=== PATIENT | female | born 1955 | race Caucasian/White ===

== ENCOUNTER 2020-01-22 08:19 | Outpatient (REF) | payer OTHER, SELFPAY ==
[2020-01-22 11:25] LABS: Estimated Average Glucose 163 mg/dL; Hemoglobin A1c % 7.3 %
[2020-01-22 11:42] LABS: Alanine Aminotransferase 16 U/L (0-31); Albumin Level 4.2 g/dL (3.5-5.0); Alkaline Phosphatase 63 U/L (39-117); Anion Gap 12 (12-20); Aspartate Amino Transferase 16 U/L (5-31); Bilirubin Total 0.6 mg/dL (0.0-1.0); Blood Urea Nitrogen 13 mg/dL (9-16); Calcium 8.8 mg/dL (8.4-10.2); Carbon Dioxide 28 mmol/L (22-29); Chloride 105 mmol/L (96-108); Cholesterol 203 mg/dL; Estimated Glomerular Filt Rate > 60; Glucose Fasting 157 mg/dL (60-99); HDL Cholesterol 47 mg/dL; LDL Cholesterol Calculated 133 mg/dl; Potassium 4.4 mmol/l (3.3-5.1); Sodium 141 mmol/L (135-145); Total Protein 6.5 g/dL (6.5-8.0); Triglycerides 117 mg/dL
[2020-01-22 12:05] LABS: TSH reflex Free T4 1.75 mIU/mL (0.32-4.0)
[2020-01-22 12:27] LABS: Creatinine Urine 169.43 mg/dL; Microalbum/Creatinine Ratio Ur 8.2 ug/mg cr
== END 2020-01-22 08:20 | disposition home or self-care (01) ==
LOC: HO.HMGCLDS 08:19
PROVIDERS: PCP Nurse Practitioner Family; Visit Provider Nurse Practitioner Family
DX: E11.9 Type 2 diabetes mellitus without complications (principal)
CPT/HCPCS: 80053; 80061; 82043; 83036; 84443

== ENCOUNTER 2020-07-31 07:24 | Outpatient (REF) | payer OTHER, SELFPAY ==
[2020-07-31 12:13] LABS: Alanine Aminotransferase 18 U/L (0-31); Albumin Level 4.1 g/dL (3.5-5.0); Alkaline Phosphatase 65 U/L (39-117); Anion Gap 12 (12-20); Aspartate Amino Transferase 17 U/L (5-31); Bilirubin Total 0.7 mg/dL (0.0-1.0); Blood Urea Nitrogen 14 mg/dL (9-16); Calcium 9.1 mg/dL (8.4-10.2); Carbon Dioxide 29 mmol/L (22-29); Chloride 105 mmol/L (96-108); Cholesterol 199 mg/dL; Estimated Glomerular Filt Rate > 60; Glucose Fasting 140 mg/dL (60-99); HDL Cholesterol 47 mg/dL; LDL Cholesterol Calculated 127 mg/dl; Potassium 4.2 mmol/L (3.3-5.1); Sodium 142 mmol/L (135-145); Total Protein 6.3 g/dL (6.5-8.0); Triglycerides 126 mg/dL
[2020-07-31 12:20] LABS: Estimated Average Glucose 123 mg/dL; Hemoglobin A1c % 5.9 %
== END 2020-07-31 07:25 | disposition home or self-care (01) ==
LOC: HO.HMGCLDS 07:24
PROVIDERS: PCP Nurse Practitioner Family; Visit Provider Nurse Practitioner Family
DX: E11.9 Type 2 diabetes mellitus without complications (principal)
CPT/HCPCS: 36415; 80053; 80061; 83036

== ENCOUNTER → 2020-09-04 14:28 | Outpatient (BNVA) | payer OTHER, SELFPAY | PROVIDERS: PCP Nurse Practitioner Family; Visit Provider Internal Medicine ==

== ENCOUNTER → 2020-09-19 08:43 | Outpatient (REF) | payer OTHER, SELFPAY ==
--- NOTE | ~2020-09-19 | NM_ITS ---
Myocardial perfusion study Indication: Precordial chest pain to evaluate for myocardial ischemia Technique: The patient was brought in for a Lexiscan perfusion study on 09/19/2020. Patient performed low-level exercise and was injected 0.4 mg of Lexiscan intravenously. Within a minute of injection, 30 mCi of sestamibi was given intravenously. Images were obtained using the SPECT gamma camera interlaced with the gating device. Images were obtained in supine position. Resting perfusion study was performed on 09/22/2020. Patient was administered 30 mCi of sestamibi intravenously at rest. Images were then obtained in supine position. Images obtained with and without CT attenuation. Total DLP 122 mGy-cm. Images were processed with the software and compared side to side in short axis, horizontal long axis and vertical long axis views. Findings: The stress perfusion study showed nonattenuated images show mildly reduced uptake in the apex and distal lateral wall of the LV myocardium as well as minimal thinning of the inferolateral wall of the LV myocardium. Remainder of the LV myocardium is normally perfused. Attenuation corrected images show mildly reduced uptake in the apex of the LV myocardium.. The gated study shows normal LV systolic function with calculated LVEF of 71%. LV cavity is normal in size. The gated study shows normal systolic wall thickening and contraction of segments. Resting study shows nonattenuated images show normalized uptake in the apex of the LV myocardium. On attenuation corrected images. Gating at rest reveals normal systolic wall motion with visually estimated ejection fraction at greater than 60 %. The findings are consistent with small area of mild intensity apical ischemia.. NM/NM cardiolite stress test Impression: 1. Myocardial perfusion imaging study shows apical ischemia 2. Gated LVEF is 71% 3. Transient ischemic dilatation not present EKG is nondiagnostic for ischemia
--- NOTE | 2020-09-19 09:30 | CA_ITS ---
Acquisition Time: 2020-09-19 09:12:40 Total Exercise Time: 00:05:08 Test Indications: Chest Pain Medications: DULAGLUTIDE ALBUTEROL Protocol: MAURISIO Max HR: 126 BPM 80% of Pred: 156 BPM Max BP: 215/100 mmHG Max Work Load: 7.0 METS Exercise stress test with exercise 5 min 8 sec of Maurisio protocol, with moderate shortness of breath and request to stop exercise, with isolated PVCs and 2 ventricular cuplets, with hypertensive response to exercise with max BP 215/100, with nondiagnostic EKG for ischemia. She was assisted to sitting position and once breathing and BP improved, testing changed to pharmacological stress test. She took 2 puffs of her proair inhaler. No wheezing on exam. After 8 min of rest, Lexiscan injection done while sitting and kicking her legs, with sob and lightheadedness, without arrythmia, with nomotensive response to injection, with nondiagnostic EKG for ischmia. In recovery she did have ongoing symptoms and was reated with Aminophylline 75mg IVP to reverse Lexiscan. Immediately post Aminophylline injection she had brief increase in sob and lightheadedness, then improvement in symptoms. After 12 min recovery she reported very mild residual lightheadedhess. Blood sugar 140. Condition stable. Nuclear images pending. Test rviewed with Dr Lees Referred By: Ten Johnston Overread By: LUIS E PRABHAKAR
[2020-09-19 10:20] LABS: Glucose, Whole Blood 140 mg/dL (60-115)
== END ==
LOC: HO.CARD 08:43
PROVIDERS: Visit Provider Internal Medicine
DX: R07.2 Precordial pain (principal)
CPT/HCPCS: 78452; 82947; 93017; A9500; J0280; J2785

== ENCOUNTER 2020-10-20 15:36 | Outpatient (REF) | payer OTHER, SELFPAY ==
--- NOTE | ~2020-10-20 | MM_ITS ---
EXAMINATION: MM SCREENING DIGITAL BREAST TOMOSYNTHESIS, BILATERAL CLINICAL INFORMATION: Screening. Asymptomatic. History benign outside ultrasound guided right breast biopsy 11:00 position 3 cm from nipple 10/17/2015 (fat necrosis with cystic change and associated hemosiderin laden macrophages and fibrosis). No clip placed. The lifetime risk of breast cancer based on the Tyrer-Cuzick Model is 8%. COMPARISON: Mammography: 01/12/2018, outside imaging from [facility], mammography 10/03/2015, 02/19/2015; ultrasound-guided right breast biopsy 10/17/2015. TECHNIQUE: Digital breast tomosynthesis is performed in both the craniocaudal and mediolateral oblique views along with computer-aided detection (CAD). Synthesized 2D images are generated from the tomosynthesis. FINDINGS: There are scattered areas of fibroglandular density (ACR BI-RADS breast composition Category b). Parenchymal pattern is similar to prior studies. There is no developing density or interval mass or architectural abnormality. The axilla and skin contours are unremarkable. No abnormal calcific. No significant changes. MM/MM tomosynthesis screening BI IMPRESSION: No mammographic evidence of malignancy. ASSESSMENT: BI-RADS 1: Negative RECOMMENDATION: Routine annual mammography screening. This patient's information was entered into a reminder system with a target due date for their next mammogram.
== END 2020-10-20 15:37 | disposition home or self-care (01) ==
LOC: HO.MAMMO 15:36
PROVIDERS: Visit Provider Nurse Practitioner Family
DX: Z12.31 Encounter for screening mammogram for malignant neoplasm of breast (principal)
CPT/HCPCS: 77063; 77067

== ENCOUNTER 2021-01-26 06:52 | Outpatient (REF) | payer OTHER, SELFPAY ==
[2021-01-26 12:11] LABS: Appearance Urine HAZY; Color Urine YELLOW; Glucose Urine UA NEG (NEG); Leukocyte Esterase Urine NEG (NEG); Nitrite Urine NEG (NEG); Specific Gravity - Urine 1.025 (1.005-1.025); Urine Blood NEG (NEG); Urine Ketones NEG (NEG); Urine Protein NEG (NEG-TRACE)
[2021-01-26 12:13] LABS: Alanine Aminotransferase 17 U/L (0-31); Alkaline Phosphatase 65 U/L (39-117); Anion Gap 16 (12-20); Aspartate Amino Transferase 18 U/L (5-31); Bilirubin Total 0.5 mg/dL (0.0-1.0); Blood Urea Nitrogen 13 mg/dL (9-16); Carbon Dioxide 24 mmol/L (22-29); Chloride 106 mmol/L (96-108); Cholesterol 211 mg/dL; Estimated Glomerular Filt Rate > 60; Glucose Fasting 140 mg/dL (60-99); HDL Cholesterol 43 mg/dL; LDL Cholesterol Calculated 142 mg/dl; Potassium 3.8 mmol/L (3.3-5.1); Sodium 142 mmol/L (135-145); Total Protein 6.4 g/dL (6.5-8.0); Triglycerides 134 mg/dL
[2021-01-26 12:20] LABS: TSH reflex Free T4 2.37 uIU/mL (0.32-4.0)
[2021-01-26 12:51] LABS: Estimated Average Glucose 131 mg/dL; Hemoglobin A1c % 6.2 %
== END 2021-01-26 06:53 | disposition home or self-care (01) ==
LOC: HO.HMGCLDS 06:52
PROVIDERS: PCP Nurse Practitioner Family; Visit Provider Nurse Practitioner Family
DX: Z00.00 Encounter for general adult medical examination without abnormal findings (principal); E11.8 Type 2 diabetes mellitus with unspecified complications
CPT/HCPCS: 36415; 80053; 80061; 81003; 83036; 84443

== ENCOUNTER 2021-04-28 12:16 | Outpatient (REF) | payer MEDICARE, SELFPAY ==
--- NOTE | ~2021-04-28 | XR_ITS ---
EXAMINATION: XR FINGER, RIGHT CLINICAL INFORMATION: Effusion COMPARISON: None TECHNIQUE: 3 views of the right third digit. FINDINGS: Third digit: Mild PIP joint arthritis, with small subchondral lucencies. No visible acute fracture or dislocation. Remainder the visualized bones appear intact. XR/XR finger RT min 2V IMPRESSION: Mild third PIP joint arthritis. No evidence of acute fracture.
== END 2021-04-28 12:17 | disposition home or self-care (01) ==
LOC: HO.HMGCX 12:16
PROVIDERS: PCP Nurse Practitioner Family; Visit Provider Nurse Practitioner Family
DX: M25.441 Effusion, right hand (principal)
CPT/HCPCS: 73140

== ENCOUNTER 2021-06-19 12:51 | Outpatient (REF) | payer MEDICARE, SELFPAY ==
--- NOTE | ~2021-06-19 | XR_ITS ---
EXAMINATION: XR SHOULDER, RIGHT CLINICAL INFORMATION: Right shoulder pain COMPARISON: None TECHNIQUE: Four views of the right shoulder. FINDINGS: Visualized portion of the proximal right humerus demonstrate no fracture. Humeral head demonstrates good articulation with the glenoid fossa. There are mild hypertrophic changes of the right acromioclavicular joint. Approximately 1 cm coarse calcification projects adjacent to the superolateral humeral head. Postsurgical changes of the right chest noted. Visualized right-sided ribs are unremarkable. XR/XR shoulder RT min 2V IMPRESSION: Suspected calcific tendinosis of the right shoulder.
== END 2021-06-19 12:52 | disposition home or self-care (01) ==
LOC: HO.HMGCX 12:51
PROVIDERS: PCP Nurse Practitioner Family; Visit Provider Nurse Practitioner Family
DX: M25.511 Pain in right shoulder (principal)
CPT/HCPCS: 73030

== ENCOUNTER 2021-07-15 08:15 | Outpatient (REF) | payer MEDICARE, SELFPAY ==
[2021-07-15 11:39] LABS: MANUAL DIFF FLAG NO
[2021-07-15 11:46] LABS: Basophils Percent Auto 0.4 % (0-2); Eosinophils Absolute Auto 0.3 X10*3/uL (0.0-0.4); Eosinophils Percent Auto 3.3 % (0-4); Hematocrit 44.1 % (37.0-47.0); Hemoglobin 14.8 g/dl (12.0-16.0); Imm Gran Abs Auto 0.02 X10*3/uL (0.00-0.03); Imm Gran Pct Auto 0.3 % (0.0-0.4); Lymphocytes Absolute Auto 2.2 X10*3/uL (1.2-4.9); Lymphocytes Percent Auto 27.1 % (20-40); Mean Corpuscular HGB Conc 33.6 g/dl (31.0-35.0); Mean Corpuscular Hemoglobin 28.7 pg (27.0-33.0); Mean Corpuscular Volume 85.6 fL (80.0-98.0); Mean Platelet Volume 10.1 fL (9.4-12.3); Monocytes Absolute Auto 0.5 X10*3/uL (0.1-1.2); Monocytes Percent Auto 5.6 % (2-11); Neutrophils Absolute Auto 5.1 x10*3/uL (2.0-8.3); Neutrophils Percent Auto 63.3 % (45-73); Platelet Count 326 X10*3/uL (160-400); Red Blood Count 5.15 X10*6/uL (4.20-5.50); Red Cell Distribution Width 12.4 % (11.0-16.0)
[2021-07-15 11:56] LABS: Alanine Aminotransferase 13 U/L (0-31); Albumin Level 4.1 g/dL (3.5-5.0); Alkaline Phosphatase 66 U/L (39-117); Anion Gap 10 (12-20); Aspartate Amino Transferase 13 U/L (5-31); Bilirubin Total 0.6 mg/dL (0.0-1.0); Blood Urea Nitrogen 13 mg/dL (9-16); Calcium 9.4 mg/dL (8.4-10.2); Carbon Dioxide 28 mmol/L (22-29); Chloride 106 mmol/L (96-108); Cholesterol 196 mg/dL; Estimated Glomerular Filt Rate > 60; Glucose Fasting 143 mg/dL (60-99); HDL Cholesterol 43 mg/dL; LDL Cholesterol Calculated 132 mg/dl; Potassium 4.3 mmol/L (3.3-5.1); Sodium 140 mmol/L (135-145); Total Protein 6.4 g/dL (6.5-8.0); Triglycerides 107 mg/dL
[2021-07-15 12:11] LABS: Microalbum/Creatinine Ratio Ur 8.1 ug/mg cr
[2021-07-15 12:15] LABS: TSH reflex Free T4 1.57 uIU/mL (0.32-4.0)
== END 2021-07-15 08:16 | disposition home or self-care (01) ==
LOC: HO.HMGCLDS 08:15
PROVIDERS: Nurse Practitioner Family; PCP Nurse Practitioner Family; Visit Provider Nurse Practitioner Family
DX: R07.2 Precordial pain (principal); E11.9 Type 2 diabetes mellitus without complications; E78.5 Hyperlipidemia, unspecified
CPT/HCPCS: 36415; 80048; 80053; 80061; 82043; 84443; 85025

== ENCOUNTER → 2021-08-03 11:20 | Outpatient (BNVA) | payer MEDICARE, SELFPAY | PROVIDERS: PCP Nurse Practitioner Family; Referring Provider Nurse Practitioner Family; Visit Provider Internal Medicine | DX: I25.10 Atherosclerotic heart disease of native coronary artery without angina pectoris (principal); I10 Essential (primary) hypertension; E78.5 Hyperlipidemia, unspecified; E11.8 Type 2 diabetes mellitus with unspecified complications | CPT/HCPCS: 93005; 99212 ==

== ENCOUNTER → 2021-08-06 09:49 | Outpatient (BNVA) | payer MEDICARE, SELFPAY | PROVIDERS: PCP Nurse Practitioner Family; Visit Provider Physician Assistant | DX: M75.51 Bursitis of right shoulder (principal) | CPT/HCPCS: 20610; 99202; J1020 ==

== ENCOUNTER 2021-10-30 10:00 | Outpatient (RCR) | payer MEDICARE, SELFPAY ==
--- NOTE | 2021-08-28 12:42 | MHC.PT.EP ---
[facility] [place] [facility] [place] Office [place] Office [address] Deanne Toscano [address] [phone] F: [phone] F: [phone] F: [phone] F: [phone] Physical Therapy Plan of Care Date of Evaluation: Date of Surgery: Diagnosis: tendinosis of R shoulder Assessment: 66 y/o RHD female referred to PT with tendonitis of R shoulder. She has had R shoulder michelle for > 1 year with recent worsening. X-rays shoulder possible calcific tendonosis. Currently pain with reaching overhead, abduction movements, carrying groceries, and sleeping. Examination shows decreased R shoulder AROM, PROM WNL except abduction limited with empty end-feel, decreased R shoulder strength, and increased pain R shoulder especially at supraspinatus and biceps. S/s consistent with calcific tendonopathy and overlapping impingement. Recommend PT 2x/week for 6 weeks to address impairments, implement HEP, and optimize functional mobility. Frequency and Duration: The patient will be seen 2x/week for 6 weeks Short Term Goals: 3 weeks 1. I with HEP 2. Improve shoulder AROM flexion to 130 with pain <3/10 [place] Goals: 6 weeks 1.I with HEP and self-management of sx 2. Pt will be able to carry 10# groceries with pain < 3/10 3. Improve R shoulder strength grossly to 4+/5 with pain < 3/10 Treatment Plan: Modalities to reduce pain, spasms and effusion. Manual therapy to restore motion and function. Therapeutic exercise to improve strength and flexibility. Neuromuscular re-education for posture and balance. Therapeutic activities to return to functional activities of daily living. Electronically signed by: Rupal Cervantes PT Please sign and return to therapist. Thank you for your referral.
--- NOTE | 2021-11-30 12:58 | MHC.PT.DC ---
[facility] [place] Office [place] Office [place] Office [address] Deanne Toscano [address] [phone] F: [phone] F: [phone] F: [phone] F: [phone] Physical Therapy Discharge Report Diagnosis: tendinosis of R shoulder Date of Surgery: Date of Evaluation: 08/28/21 Date of Discharge: 11/30/21 Treatments to Date: 13 Cancellations to Date: 1 No Shows to Date: 0 Discharge Status: Independent with HEP Discharge Summary: D/c to I HEP. Assessment from last treatment session one month ago: She continues to have most pain with abduction and some intermittent clicking. Added behind the back stretch to tolerance today without increase in pain. Educated pt on heat/ice at home and performing ROM to tolerance in painfree zones. Also discussed and performed simulated mopping/ vacuuming and how to change work station to decrease impingement position with use of computer mouse. She has made progress (about 50% better) however has plateaued and recommend pt f/u with ortho re continued pain with certain activities and plateau of sx. Pt in agreement. Will keep chart open for 4 weeks. Electronically signed by: Rupal Cervantes PT Please sign and return to therapist. Thank you for your referral.
== END 2021-11-30 12:58 | disposition home or self-care (01) ==
LOC: HO.PTCHIC 10:00
PROVIDERS: PCP Nurse Practitioner Family; Visit Provider Nurse Practitioner Family
DX: M67.813 Other specified disorders of tendon, right shoulder (principal)
CPT/HCPCS: 97014; 97110; 97140; 97161

== ENCOUNTER → 2021-12-02 13:41 | Outpatient (BNVA) | payer MEDICARE, SELFPAY | PROVIDERS: PCP Nurse Practitioner Family; Visit Provider Internal Medicine Pulmonary Disease | DX: Q85.9 Phakomatosis, unspecified (principal); J43.9 Emphysema, unspecified | CPT/HCPCS: 99202 ==

== ENCOUNTER 2021-12-09 08:09 | Outpatient (REF) | payer MEDICARE, SELFPAY ==
--- NOTE | ~2021-12-09 | CT_ITS ---
EXAMINATION: CT CHEST WITHOUT CONTRAST CLINICAL INFORMATION: Phakomatosis. COMPARISON: CT chest 02/10/2012. TECHNIQUE: Multidetector volumetric CT imaging of the chest was done. Axial MIP volume rendering provided. Sagittal and coronal reformatted images were obtained. This CT examination was performed using dose optimization techniques as appropriate, variously including the following: *Automated exposure control *Adjustment of mA and/or kV according to patient size (this includes techniques or standardized protocols for targeted exams where dose is matched to indication/reason for exam; i.e. 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 There is scarring in this region but no recurrent mass visualized. No new nodules, mass or consolidation seen. There are punctate 1-2 mm scattered calcified granulomas. Left lower lobe atelectatic changes or scarring is seen. MEDIASTINUM: The thyroid lobes are symmetrical and normal. Central trachea and the bronchi are widely patent. Heart size and great vessels are normal caliber. There is no pericardial effusion. No abnormal size mediastinal or hilar lymph node seen. CORONARY ARTERY CALCIFICATION: None visualized on this study. PLEURA: There is no pleural effusion. No pleural mass or thickening. AXILLA: No lymphadenopathy. UPPER ABDOMEN: Visualized liver, spleen, pancreas and bilateral adrenal glands are unremarkable. There is a right renal cyst. OSSEOUS STRUCTURES: Mild ventral spondylosis in mid and lower dorsal spine. CT/CT chest wo IV con IMPRESSION: Postsurgical changes right lower lobe following removal of vascular tumor. There is scarring seen in right lower lobe with slight loss of lung volume. There are no new pulmonary nodules, mass or consolidation. There are punctate calcified granulomas. Followed Fleischner guidelines.
== END 2021-12-09 08:10 | disposition home or self-care (01) ==
LOC: HO.CT 08:09
PROVIDERS: PCP Nurse Practitioner Family; Visit Provider Internal Medicine Pulmonary Disease
DX: Q85.9 Phakomatosis, unspecified (principal)
CPT/HCPCS: 71250

== ENCOUNTER 2021-12-18 09:04 | Outpatient (REF) | payer MEDICARE, SELFPAY ==
--- NOTE | ~2021-12-18 | MM_ITS ---
EXAMINATION: MM SCREENING DIGITAL BREAST TOMOSYNTHESIS, BILATERAL CLINICAL INFORMATION: Screening. Asymptomatic. The lifetime risk of breast cancer based on the Tyrer-Cuzick Model is 7.7%. COMPARISON: Mammography: October 20, 2020 and studies dating back to February 04, 2012 TECHNIQUE: Digital breast tomosynthesis is performed in both the craniocaudal and mediolateral oblique views along with computer-aided detection (CAD). Synthesized 2D images are generated from the tomosynthesis. FINDINGS: There are scattered areas of fibroglandular density (ACR BI-RADS breast composition Category b). There are no significant masses, abnormal calcifications, or other abnormalities. MM/MM tomosynthesis screening BI IMPRESSION: No significant changes from prior exam. ASSESSMENT: BI-RADS 1: Negative RECOMMENDATION: Routine annual mammography screening. This patient's information was entered into a reminder system with a target due date for their next mammogram.
== END 2021-12-18 09:05 | disposition home or self-care (01) ==
LOC: HO.MAMMO 09:04
PROVIDERS: Visit Provider Nurse Practitioner Family
DX: Z12.31 Encounter for screening mammogram for malignant neoplasm of breast (principal)
CPT/HCPCS: 77063; 77067

== ENCOUNTER 2021-12-24 07:52 | Outpatient (REF) | payer MEDICARE, SELFPAY ==
--- NOTE | 2021-12-24 09:46 | PFT_ITS ---
Forced vital capacity 75%, FEV1 66%, FEV1/FVC ratio is 67. [id number] 55% and MVV 64%. Post bronchodilator therapy, there is moderate improvement in all flow values. Total lung capacity 94% and residual volume 88%. Diffusion capacity is 63%. CONCLUSION: Moderately severe obstructive airway disorder. Significant improvement after bronchodilator therapy resulting in normal values. These findings are consistent with diagnosis of bronchial asthma. Clinical correlation is recommended. MD MIGUEL ANGEL Lino/JALEESA / [phone]
== END 2021-12-24 07:53 | disposition home or self-care (01) ==
LOC: HO.RESP 07:52
PROVIDERS: PCP Nurse Practitioner Family; Visit Provider Internal Medicine Pulmonary Disease
DX: J43.9 Emphysema, unspecified (principal)
CPT/HCPCS: 94060; 94727; 94729

== ENCOUNTER → 2021-12-30 09:51 | Outpatient (BNVA) | payer MEDICARE, SELFPAY | PROVIDERS: PCP Nurse Practitioner Family; Visit Provider Internal Medicine Pulmonary Disease | DX: J44.9 Chronic obstructive pulmonary disease, unspecified (principal); Q85.9 Phakomatosis, unspecified | CPT/HCPCS: 99212 ==

== ENCOUNTER → 2022-02-15 14:07 | Outpatient (BNVA) | payer MEDICARE, SELFPAY | PROVIDERS: PCP Nurse Practitioner Family; Referring Provider Nurse Practitioner Family; Visit Provider Internal Medicine | DX: I25.10 Atherosclerotic heart disease of native coronary artery without angina pectoris (principal); I10 Essential (primary) hypertension; E78.5 Hyperlipidemia, unspecified; E11.8 Type 2 diabetes mellitus with unspecified complications | CPT/HCPCS: 93005; 99212 ==

== ENCOUNTER 2022-02-23 08:56 | Outpatient (REF) | payer MEDICARE, SELFPAY ==
[2022-02-23 11:13] LABS: MANUAL DIFF FLAG NO
[2022-02-23 11:28] LABS: Basophils Percent Auto 0.4 % (0-2); Eosinophils Absolute Auto 0.3 X10*3/uL (0.0-0.4); Eosinophils Percent Auto 4.1 % (0-4); Hemoglobin 14.3 g/dl (12.0-16.0); Imm Gran Abs Auto 0.02 X10*3/uL (0.00-0.03); Imm Gran Pct Auto 0.3 % (0.0-0.4); Lymphocytes Absolute Auto 1.8 X10*3/uL (1.2-4.9); Lymphocytes Percent Auto 25.9 % (20-40); Mean Corpuscular Hemoglobin 29.3 pg (27.0-33.0); Mean Corpuscular Volume 86.1 fL (80.0-98.0); Mean Platelet Volume 10.3 fL (9.4-12.3); Monocytes Absolute Auto 0.3 X10*3/uL (0.1-1.2); Monocytes Percent Auto 4.8 % (2-11); Neutrophils Absolute Auto 4.6 x10*3/uL (2.0-8.3); Neutrophils Percent Auto 64.5 % (45-73); Platelet Count 283 X10*3/uL (160-400); Red Blood Count 4.88 X10*6/uL (4.20-5.50); Red Cell Distribution Width 12.2 % (11.0-16.0); White Blood Count 7.1 X10*3/uL (4.8-10.8)
[2022-02-23 11:58] LABS: Estimated Average Glucose 128 mg/dL; Hemoglobin A1c % 6.1 %
[2022-02-23 12:39] LABS: Alanine Aminotransferase 16 U/L (0-31); Albumin Level 3.9 g/dL (3.5-5.0); Alkaline Phosphatase 60 U/L (39-117); Anion Gap 10 (12-20); Aspartate Amino Transferase 15 U/L (5-31); Bilirubin Total 0.6 mg/dL (0.0-1.0); Blood Urea Nitrogen 15 mg/dL (9-16); Calcium 8.8 mg/dL (8.4-10.2); Carbon Dioxide 27 mmol/L (22-29); Chloride 107 mmol/L (96-108); Cholesterol 191 mg/dL; Estimated Glomerular Filt Rate > 60; Glucose Fasting 152 mg/dL (60-99); HDL Cholesterol 42 mg/dL; LDL Cholesterol Calculated 121 mg/dl; Potassium 4.1 mmol/L (3.3-5.1); Sodium 140 mmol/L (135-145); TSH reflex Free T4 2.07 uIU/mL (0.32-4.0); Triglycerides 141 mg/dL
[2022-02-23 16:54] LABS: Appearance Urine Turbid; Color Urine Yellow; Glucose Urine UA 500 mg/dL (Negative); Leukocyte Esterase Urine Negative (Negative); Nitrite Urine Negative (Negative); PH 5.5 (5.0-9.0); Specific Gravity - Urine >= 1.030 (1.005-1.025); Urine Blood Negative (Negative); Urine Ketones Trace mg/dL (Negative); Urine Protein Negative (Neg-Trace)
[2022-02-23 18:04] LABS: Creatinine Urine 209.08 mg/dL; Microalbum/Creatinine Ratio Ur 5.7 ug/mg cr
== END 2022-02-23 08:57 | disposition home or self-care (01) ==
LOC: HO.HMGCLDS 08:56
PROVIDERS: PCP Nurse Practitioner Family; Visit Provider Nurse Practitioner Family
DX: E11.9 Type 2 diabetes mellitus without complications (principal)
CPT/HCPCS: 36415; 80053; 80061; 81003; 82043; 83036; 84443; 85025

== ENCOUNTER 2022-12-21 06:18 | Outpatient (REF) | payer MEDICARE, SELFPAY ==
[2022-12-21 11:27] LABS: MANUAL DIFF FLAG NO
[2022-12-21 11:46] LABS: Basophils Percent Auto 0.4 % (0-2); Eosinophils Absolute Auto 0.2 X10*3/uL (0.0-0.4); Eosinophils Percent Auto 3.1 % (0-4); Hematocrit 45.1 % (37.0-47.0); Hemoglobin 15.2 g/dl (12.0-16.0); Imm Gran Abs Auto 0.02 X10*3/uL (0.00-0.03); Imm Gran Pct Auto 0.3 % (0.0-0.4); Lymphocytes Percent Auto 25.7 % (20-40); Mean Corpuscular HGB Conc 33.7 g/dl (31.0-35.0); Mean Corpuscular Hemoglobin 29.2 pg (27.0-33.0); Mean Corpuscular Volume 86.6 fL (80.0-98.0); Mean Platelet Volume 9.9 fL (9.4-12.3); Monocytes Absolute Auto 0.4 X10*3/uL (0.1-1.2); Monocytes Percent Auto 4.9 % (2-11); Neutrophils Percent Auto 65.6 % (45-73); Platelet Count 308 X10*3/uL (160-400); Red Blood Count 5.21 X10*6/uL (4.20-5.50); Red Cell Distribution Width 12.4 % (11.0-16.0); White Blood Count 7.7 X10*3/uL (4.8-10.8)
[2022-12-21 12:20] LABS: Estimated Average Glucose 137 mg/dL; Hemoglobin A1c % 6.4 % (<6.0)
[2022-12-21 12:33] LABS: Alanine Aminotransferase 16 U/L (0-31); Albumin Level 4.1 g/dL (3.5-5.0); Alkaline Phosphatase 62 U/L (39-117); Anion Gap 16 (12-20); Aspartate Amino Transferase 17 U/L (5-31); Bilirubin Total 0.8 mg/dL (0.0-1.0); Blood Urea Nitrogen 15 mg/dL (9-16); Calcium 9.4 mg/dL (8.4-10.2); Carbon Dioxide 25 mmol/L (22-29); Chloride 106 mmol/L (96-108); Cholesterol 206 mg/dL (<200); Estimated Glomerular Filt Rate > 60; Glucose Fasting 162 mg/dL (60-99); HDL Cholesterol 50 mg/dL (>40); LDL Cholesterol Calculated 132 mg/dL (<100); Potassium 3.9 mmol/L (3.3-5.1); Sodium 143 mmol/L (135-145); TSH reflex Free T4 2.32 uIU/mL (0.32-4.0); Total Protein 6.8 g/dL (6.5-8.0); Triglycerides 123 mg/dL (<150)
== END 2022-12-21 06:19 | disposition home or self-care (01) ==
LOC: HO.HMGCLDS 06:18
PROVIDERS: PCP Nurse Practitioner Family; Visit Provider Nurse Practitioner Family
DX: E11.8 Type 2 diabetes mellitus with unspecified complications (principal); I10 Essential (primary) hypertension
CPT/HCPCS: 36415; 80053; 80061; 83036; 84443; 85025

== ENCOUNTER 2022-12-22 05:00 | Outpatient (REF) | payer MEDICARE, SELFPAY ==
[2022-12-22 11:38] LABS: Appearance Urine Clear; Color Urine Yellow; Glucose Urine UA Negative (Negative); Leukocyte Esterase Urine Negative (Negative); Nitrite Urine Negative (Negative); PH 5.5 (5.0-9.0); Specific Gravity - Urine 1.025 (1.005-1.025); Urine Blood Negative (Negative); Urine Ketones Negative (Negative); Urine Protein Negative (Neg-Trace)
== END 2022-12-22 05:01 | disposition home or self-care (01) ==
LOC: HO.HMGCLNP 05:00
PROVIDERS: PCP Nurse Practitioner Family; Visit Provider Nurse Practitioner Family
DX: E11.8 Type 2 diabetes mellitus with unspecified complications (principal); I10 Essential (primary) hypertension
CPT/HCPCS: 81003

== ENCOUNTER 2022-12-23 08:20 | Outpatient (AMB) | payer MEDICARE, SELFPAY ==
--- NOTE | 2022-12-23 08:23 | MHC.PC.OV ---
Vital Signs 12/23/22 Height 5 ft 7 in BMI Reason not done Patient refused/unable BP 130/90 H Blood Pressure Location Rt brachial Position Sitting Pulse 81 Pulse Source Pulse Oximeter Pulse Oximetry (%) 97 Oxygen Delivery Method Room Air Intake Visit Reasons: Annual PE Allergies rosuvastatin Allergy (Intermediate, Verified 12/23/22 08:) Unknown acetaminophen [From Roxicet] Allergy (Unknown, Verified 12/23/22 08:) Heightened pain amlodipine Allergy (Unknown, Verified 12/23/22:) Unsure amoxicillin Allergy (Unknown, Verified 12/23/22:) unknown erythromycin base Allergy (Unknown, Verified 12/23/22:) Unknown fexofenadine [From Anika] Allergy (Unknown, Verified 12/23/22) unknown ibuprofen Allergy (Unknown, Verified 12/23/22) Unkown NSAIDS (Non-Steroidal Anti-Inflamma Allergy (Unknown, Verified 12/23/22 08:) Unknown oxycodone [From Roxicet] Allergy (Unknown, Verified 12/23/22:) Heightened pain Peanut Butter Allergy (Unknown, Verified 12/23/22:) increased heart rate Penicillins Allergy (Unknown, Verified 12/23/22:) unknown propranolol Allergy (Unknown, Verified 12/23/22) cramps tramadol [Ultram] Allergy (Unknown, Verified 12/23/22:) unknown ciprofloxacin [Cipro] Adverse Reaction (Unknown, Verified 12/23/22 08:) jittery ezetimibe [Zetia] Adverse Reaction (Unknown, Verified 12/23/22:) Shortness of breath hydrochlorothiazide Adverse Reaction (Unknown, Verified 12/23/22:) Dizziness, issue with blood pressure irbesartan Adverse Reaction (Unknown, Verified 12/23/22:) severe GI upset ketorolac Adverse Reaction (Unknown, Verified 12/23/22:) chest px levofloxacin [Levaquin] Adverse Reaction (Unknown, Verified 12/23/22:) redness, throat closing losartan Adverse Reaction (Unknown, Verified 12/23/22 08:) Abdominal pain/bloating celecoxib Adverse Reaction (Verified 12/23/22:) ear pain Most antibiotics Allergy (Unknown, Uncoded 12/23/22 08:27) unknown Mycin drugs Allergy (Unknown, Uncoded 12/23/22 08:27) Unk pain medication Allergy (Unknown, Uncoded 12/23/22 08:27) unknown harriet? Allergy (Unknown, Uncoded 12/23/22 08:27) unk surgical tape Adverse Reaction (Unknown, Uncoded 12/23/22 08:27) rash Medication List - Last Reconciled 12/23/22 by [facility] albuterol sulfate 90 mcg/actuation 1 inh inhalation QID PRN 90 days aspirin (Enteric Coated Aspirin) 81 mg PO DAILY atorvastatin 10 mg PO BEDTIME blood sugar diagnostic As directed dulaglutide (Trulicity) 0.75 mg (0.5 mL) subcut QWEEK 30 days epinephrine (EpiPen) 0.3 mg (0.3 mL) IM Q4H PRN OneTouch Verio test strips (blood sugar diagnostic) Use to check blood sugar once a day or if having symptoms of hypo/hyperglycemia. NS prednisolone acetate 1% 1 drp ophthalmic (eye) BID PRN 14 days Tobacco use date assessed: 08/24/22 Fall risk assessment: No Falls in past year Last assessed Fall Risk: 12/23/22 Dental Screening Dental Screen Date: 12/23/22 Did you have a dental visit in the last 12 months?: Yes Did you have a dental problem in the last 6 months where you did not have access to dental care?: No Was dental information given to patient?: Patient has dentist HPI Annual PE HPI Details Diabetes: Labs were already performed. Cologuard is up to date. Due for mammo, pt will schedule this. last A1C was 6.4. Microalbumin is up to date. Denies polyuria, polydipsia, and neuropathy. Pt denies any signs and symptoms of hypoglycemia and does know how to correct it. Eye exam is up to date. Pt has tried several statins and has not tolerated them. Will try low dose atorvastatin. Also does not tolerate zetia, ACEs, or ARBs. Pt c/o right hip pain. denies any popping or clicking. Will order xr. [facility] Medical History Gastroesophageal reflux disease Hamartoma Hyperlipidemia Ischemic heart disease Surgical History History of eyelid surgery History of lung surgery Family History Father No problems noted. Mother Tongue cancer Smoker Heart problem History of heart attack Sister No problems noted. Sister No problems noted. 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 96719 - PHQ-9 Billing: Patient declined-do not bill Source: Developed by Drs. Charles Valencia, Ingrid Vásquez, Ramiro Watts and colleagues, with an educational andie from [employer]. Thrive Questionnaire Date Thrive assessed: 12/23/22 AUDIT C Alcohol Use Questionnaire (AUDIT-C) 1. How often do you have a drink containing alcohol?: Never 3. How often do you have six or more drinks on one occasion?: Never Total Score: 0 Score Reviewed/Action Taken: No CAT-7 AMB Questionnaire CAT-7 Date CAT - 7 assessed: 12/23/22 Source: Developed by Drs. Charles Valencia, Ingrid Vásquez, Ramiro Watts and colleagues, with an educational andie from [employer]. CAT-7 Assessment Billing CAT-7 Assessment Tool: pt declined-do not bill Review of Systems Const Denies chills and Denies fever(s) Eyes Denies blurry vision ENT Denies vertigo, Denies dizziness and Denies sore throat Card Denies chest pain at rest, Denies chest pain with activity, Denies diaphoresis, Denies dyspnea and Denies dyspnea on exertion Resp Denies cough, Denies dyspnea, Denies dyspnea on exertion and Denies wheezing GI Denies abdominal pain, Denies melena, Denies hematochezia, Denies constipation, Denies diarrhea and Denies loose stools Denies hematuria Musc Denies numbness and Denies tingling Skin/Breast Denies lesions Neuro Denies vertigo, Denies dizziness, Denies numbness and Denies tingling Psych Denies anxiety, Denies depression, Denies homicidal ideation, Denies suicidal ideation and Denies other (substance abuse) Aller/Immun Denies wheezing Physical exam (Primary Care) Vital Signs: Last Vital Signs Pulse 81 12/23/22 08:27 BP 130/90 H 12/23/22 08:27 Pulse Ox 97 12/23/22 08:27 Oxygen Delivery Method Room Air 12/23/22 08:27 Tobacco/Smoking Status: Tobacco use Status Tobacco use date assessed 08/24/22 12/23/22 08:25 Patient Tobacco Use Status Former Tobacco user 12/23/22 08:25 e-Cigarette/Vaping Use Never Used 12/23/22 08:25 Thrive Assessment: Date of Thrive Assessment Date Thrive assessed 12/23/22 12/23/22 08:36 Const General: cooperative Nutritional Appearance: well nourished Orientation/consciousness: patient oriented x3 Resp Effort & Inspection: normal respiratory effort Auscultation: clear to auscultation bilaterally Cardio Rate: regular rate Rhythm: regular rhythm Heart sounds: S1 normal heart sound present, S2 normal heart sound present and no murmurs Neuro General: patient oriented x3 and moves all extremities Romberg Test: Negative Extrem Other: right hip: + fabers, no pain with abduction and adduction, bilat feet: + sensation with use of monofilament Psych Appearance: grossly normal Mental Status: mental status grossly normal Speech and movement: Normal speech and movement present Affect: normal affect Attitude: cooperative Thought process: Normal thought process present Thought content: Normal thought content present Insight: Good insight present (Psych) Judgement: Good judgement present (Psych) Assessment and Plan Assessment & Plan (1) Right hip pain: Code(s): M25.551 - Pain in right hip Plan: XR ordered (2) Dyslipidemia: Code(s): E78.5 - Hyperlipidemia, unspecified (3) Diabetes: Code(s): E11.9 - Type 2 diabetes mellitus without complications Plan The patient agreed to the use of a clinical specialist medical device for this encounter. Scribed for [employer]lam[employer] by Zoe Mack clinical specialist medical device, on 12/23/2022 at 08:35 EST Orders: Orders XR hip RT min 2V Today M25.551 - Pain in right hip Medications: New atorvastatin 10 mg PO BEDTIME 90 tabs 0RF epinephrine (EpiPen) 0.3 mg (0.3 mL) IM Q4H PRN 2 ea 1RF anaphylaxis Coding Level of Care Code Est Pt Prev Care >65y(26194) Diagnoses Right hip pain M25.551 Dyslipidemia E78.5 Diabetes E11.9
[2022-12-23 08:27] VITALS: BP 130/90; PULSE 81; O2SAT 97
== END 2022-12-23 10:01 | disposition home or self-care (01) ==
PROVIDERS: PCP Nurse Practitioner Family; Visit Provider Nurse Practitioner Family
DX: Z00.01 Encounter for general adult medical examination with abnormal findings (principal); M25.551 Pain in right hip; E78.5 Hyperlipidemia, unspecified; E11.9 Type 2 diabetes mellitus without complications
CPT/HCPCS: 99397

== ENCOUNTER 2022-12-23 09:04 | Outpatient (REF) | payer MEDICARE, SELFPAY ==
--- NOTE | ~2022-12-23 | XR_ITS ---
EXAMINATION: XR HIP, RIGHT CLINICAL INFORMATION: Pain in right hip COMPARISON: None available. TECHNIQUE: Two views of the right hip. FINDINGS: Degenerative changes on very limited images of the lower lumbar spine. Right hip joint space and alignment are preserved. Mild hypertrophic change along the lateral aspect of the acetabulum. XR/XR hip RT min 2V IMPRESSION: Mild degenerative changes right hip. Additional imaging with CT scan or MRI should be considered for better visualization as these modalities are much more sensitive for detection of fracture or other underlying pathology.
== END 2022-12-23 09:05 | disposition home or self-care (01) ==
LOC: HO.HMGCX 09:04
PROVIDERS: PCP Nurse Practitioner Family; Visit Provider Nurse Practitioner Family
DX: M25.551 Pain in right hip (principal)
CPT/HCPCS: 73502

== ENCOUNTER 2023-02-14 07:22 | Outpatient (REF) | payer MEDICARE, SELFPAY | END 2023-02-14 07:23 | disposition home or self-care (01) | LOC: HO.MAMMO 07:22 | PROVIDERS: PCP Nurse Practitioner Family; Visit Provider Nurse Practitioner Family | DX: Z12.31 Encounter for screening mammogram for malignant neoplasm of breast (principal) | CPT/HCPCS: 77063; 77067 ==

== ENCOUNTER → 2023-02-14 07:30 | Outpatient (BNV) | payer MEDICARE, SELFPAY | PROVIDERS: PCP Nurse Practitioner Family; Visit Provider Radiology Diagnostic Radiology | DX: Z12.31 Encounter for screening mammogram for malignant neoplasm of breast (principal) | CPT/HCPCS: 77063; 77067 ==

== ENCOUNTER 2023-05-03 13:16 | Outpatient (AMB) | payer MEDICARE, SELFPAY ==
--- NOTE | 2023-05-03 13:21 | A.OFFPC_ITS ---
Vital Signs 05/03/23 13:22 05/03/23 13:29 Height 5 ft 7 in BMI Reason not done Patient refused/unable BP 160/90 H 142/90 H Blood Pressure Location Lt brachial Rt brachial Position Sitting Sitting Pulse 78 Pulse Source Pulse Oximeter Pulse Oximetry (%) 98 Oxygen Delivery Method Room Air Intake Visit Reasons: 4 MON F/U Intake Note: pt is here for 4 month follow up Sea Foam Kiss Maker Required: No Accompanied by: Self / Same As Patient Allergies rosuvastatin Allergy (Intermediate, Verified 05/03/23 13:23) Unknown acetaminophen [From Roxicet] Allergy (Unknown, Verified 05/03/23 13:23) Heightened pain amlodipine Allergy (Unknown, Verified 05/03/23 13:23) Unsure amoxicillin Allergy (Unknown, Verified 05/03/23 13:23) unknown erythromycin base Allergy (Unknown, Verified 05/03/23 13:23) Unknown fexofenadine [From Anika] Allergy (Unknown, Verified 05/03/23 13:23) unknown ibuprofen Allergy (Unknown, Verified 05/03/23 13:23) Unkown NSAIDS (Non-Steroidal Anti-Inflamma Allergy (Unknown, Verified 05/03/23 13:23) Unknown oxycodone [From Roxicet] Allergy (Unknown, Verified 05/03/23 13:23) Heightened pain Peanut Butter Allergy (Unknown, Verified 05/03/23 13:23) increased heart rate Penicillins Allergy (Unknown, Verified 05/03/23 13:23) unknown propranolol Allergy (Unknown, Verified 05/03/23 13:23) cramps tramadol [Ultram] Allergy (Unknown, Verified 05/03/23 13:23) unknown ciprofloxacin [Cipro] Adverse Reaction (Unknown, Verified 05/03/23 13:23) jittery ezetimibe [Zetia] Adverse Reaction (Unknown, Verified 05/03/23 13:23) Shortness of breath hydrochlorothiazide Adverse Reaction (Unknown, Verified 05/03/23 13:23) Dizziness, issue with blood pressure irbesartan Adverse Reaction (Unknown, Verified 05/03/23 13:23) severe GI upset ketorolac Adverse Reaction (Unknown, Verified 05/03/23 13:23) chest px levofloxacin [Levaquin] Adverse Reaction (Unknown, Verified 05/03/23 13:23) redness, throat closing losartan Adverse Reaction (Unknown, Verified 05/03/23 13:23) Abdominal pain/bloating celecoxib Adverse Reaction (Verified 05/03/23 13:23) ear pain Most antibiotics Allergy (Unknown, Uncoded 12/23/22 08:27) unknown Mycin drugs Allergy (Unknown, Uncoded 12/23/22 08:27) Unk pain medication Allergy (Unknown, Uncoded 12/23/22 08:27) unknown harriet? Allergy (Unknown, Uncoded 12/23/22 08:27) unk surgical tape Adverse Reaction (Unknown, Uncoded 12/23/22 08:27) rash Medication List - Last Reconciled 05/03/23 by Basil Bullock, [facility]- albuterol sulfate 90 mcg/actuation 1 inh inhalation QID PRN 90 days aspirin (Enteric Coated Aspirin) 81 mg PO DAILY bempedoic acid 180 mg PO DAILY blood sugar diagnostic As directed dulaglutide 0.75 mg (0.5 mL) subcut QWEEK 30 days epinephrine (EpiPen) 0.3 mg (0.3 mL) IM Q4H PRN OneTouch Verio test strips (blood sugar diagnostic) Use to check blood sugar once a day or if having symptoms of hypo/hyperglycemia. NS Tobacco use date assessed: 05/03/23 Fall risk assessment: No Falls in past year Last assessed Fall Risk: 05/03/23 Dental Screening Dental Screen Date: 05/03/23 Did you have a dental visit in the last 12 months?: Yes Did you have a dental problem in the last 6 months where you did not have access to dental care?: No Was dental information given to patient?: Patient has dentist HPI 4 MON F/U HPI Details Pt is a diabetic, A1C in office today is 6.9. Due for microalbumin. Denies polyuria, polydipsia, and neuropathy. Pt denies any signs and symptoms of hypoglycemia and does know how to correct it. Pt reports that she has been eating chocolate frequently. Pt will work on her diet. Eye exam is up to date. Pt reports trigger finger of her left 3rd finger. She reports that this started one month ago. Will refer to hand specialist. HTN: Blood pressure is elevated today. Will start olmesartan (also for renal protection). Denies chest pain, shortness of breath, headache, dizziness, and blurred vision. [facility] Medical History Ischemic heart disease Hamartoma Hyperlipidemia Gastroesophageal reflux disease Surgical History History of eyelid surgery History of lung surgery Family History Father No problems noted. Mother Tongue cancer Smoker Heart problem History of heart attack Sister No problems noted. Sister No problems noted. 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 Charles Valencia, Ingrid Vásquez, Ramiro Watts and colleagues, with an educational andie from [employer]. Review of Systems Const Reports as per HPI Physical exam (Primary Care) Vital Signs: Last Vital Signs Pulse 78 05/03/23 13:22 BP 142/90 H 05/03/23 13:29 Pulse Ox 98 05/03/23 13:22 Oxygen Delivery Method Room Air 05/03/23 13:22 Tobacco/Smoking Status: Tobacco use Status Tobacco use date assessed 05/03/23 05/03/23 13:25 Patient Tobacco Use Status Former Tobacco user 05/03/23 13:25 e-Cigarette/Vaping Use Never Used 05/03/23 13:25 Thrive Assessment: Date of Thrive Assessment Date Thrive assessed 12/23/22 05/03/23 13:25 Const General: cooperative Orientation/consciousness: patient oriented x3 Resp Effort & Inspection: normal respiratory effort Auscultation: clear to auscultation bilaterally Cardio Rate: regular rate Rhythm: regular rhythm Heart sounds: S1 normal heart sound present, S2 normal heart sound present and no murmurs Neuro General: patient oriented x3 Extrem Other: bilat feet: + sensation with use of monofilament, feet intact Psych Appearance: grossly normal Mental Status: mental status grossly normal Speech and movement: Normal speech and movement present Affect: normal affect Attitude: cooperative Thought process: Normal thought process present Thought content: Normal thought content present Insight: Good insight present (Psych) Judgement: Good judgement present (Psych) Results AMB Hemoglobin A1c AMB Hemoglobin A1c 6.9 % Last Edit by Manish Sagastume CMA on 05/03/23 15: 25 Results Reviewed Results Reviewed: Laboratory Last Values Hgb A1c (Clinic) 6.9 % (4.0-6.0) H 05/03/23 15:24 Assessment and Plan Assessment & Plan (1) Trigger finger: Code(s): M65.30 - Trigger finger, unspecified finger Plan: Referred to ortho (2) Type 2 diabetes mellitus with unspecified complications: Code(s): E11.8 - Type 2 diabetes mellitus with unspecified complications Plan: pt wants to work on her diet, will recheck a1c in 3 months (3) HTN (hypertension): Code(s): I10 - Essential (primary) hypertension Plan: started olmesartan Plan The patient agreed to the use of a medical assistant prn for this encounter. Scribed for RUIZ Llamas by Zoe Mack medical assistant prn, on 05/03/2023 at 13:30 EST. Orders: Orders Comprehensive [place]. Panel Fast Today E11.8 - Type 2 diabetes mellitus with unspecified complications UA CC w/rflx Micro + Cult Today E11.8 - Type 2 diabetes mellitus with unspecified complications Complete Blood Count Auto Diff Today E11.8 - Type 2 diabetes mellitus with unspecified complications TSH reflex Free T4 Today E11.8 - Type 2 diabetes mellitus with unspecified complications Lipid Panel Today E11.8 - Type 2 diabetes mellitus with unspecified comp lications Microalbumin, Random (w Creat) Today E11.8 - Type 2 diabetes mellitus with unspecified complications AMB Hemoglobin A1c Today E11.9 - Type 2 diabetes mellitus without complications, Z13.9 - Encounter for screening, unspecified Referrals Orthopedics Referral M65.30 - Trigger finger, unspecified finger Medications: New olmesartan 5 mg PO DAILY 30 tabs 2RF Coding Level of Care Code Est Pt Level 3 (13990) Diagnoses Trigger finger M65.30 Type 2 diabetes mellitus with unspecified complications E11.8 HTN (hypertension) I10
[2023-05-03 13:22] VITALS: BP 160/90; PULSE 78; O2SAT 98
[2023-05-03 13:29] VITALS: BP 142/90
== END 2023-05-03 13:58 | disposition home or self-care (01) ==
LOC: HO.HMGC 13:16
PROVIDERS: PCP Nurse Practitioner Family; Visit Provider Nurse Practitioner Family
DX: M65.342 Trigger finger, left ring finger (principal); E11.8 Type 2 diabetes mellitus with unspecified complications; I10 Essential (primary) hypertension
CPT/HCPCS: 83036; 99213

== ENCOUNTER 2023-06-07 10:41 | Outpatient (AMB) | payer MEDICARE, SELFPAY ==
[2023-06-07 10:57] VITALS: BMI 28.2
--- NOTE | 2023-06-07 10:57 | A.OFFVIS_ITS ---
Intake Vital Signs 06/07/23 10:57 Height 5 ft 7 in Weight 180 lb BMI 28.2 Intake Visit Reasons: NProblem-Left hand, trigger middle finger Intake Note: Leslye 68 yr old right hand dominant female presents today for a new problem visit for her Left hand, middle finger and index finger. States she has stiffness in her fingers and is not able to fully bend finger for the last few 3 days.She is not able to make a full close fist. Today she is able to move her and bend her finger half way. Pain is constant especially in the mornings and when making a fist. . Patient is diabetic, last A1C was done on 05/03/23. A1C 6.9. Denies O.T or injections. Allergies rosuvastatin Allergy (Intermediate, Verified 06/07/23 10:57) Unknown acetaminophen [From Roxicet] Allergy (Unknown, Verified 06/07/23 10:57) Heightened pain amlodipine Allergy (Unknown, Verified 06/07/23 10:57) Unsure amoxicillin Allergy (Unknown, Verified 06/07/23 10:57) unknown erythromycin base Allergy (Unknown, Verified 06/07/23 10:57) Unknown fexofenadine [From Anika] Allergy (Unknown, Verified 06/07/23 10:57) unknown ibuprofen Allergy (Unknown, Verified 06/07/23 10:57) Unkown NSAIDS (Non-Steroidal Anti-Inflamma Allergy (Unknown, Verified 06/07/23 10:57) Unknown oxycodone [From Roxicet] Allergy (Unknown, Verified 06/07/23 10:57) Heightened pain Peanut Butter Allergy (Unknown, Verified 06/07/23 10:57) increased heart rate Penicillins Allergy (Unknown, Verified 06/07/23 10:57) unknown propranolol Allergy (Unknown, Verified 06/07/23 10:57) cramps tramadol [Ultram] Allergy (Unknown, Verified 06/07/23 10:57) unknown ciprofloxacin [Cipro] Adverse Reaction (Unknown, Verified 06/07/23 10:57) jittery ezetimibe [Zetia] Adverse Reaction (Unknown, Verified 06/07/23 10:57) Shortness of breath hydrochlorothiazide Adverse Reaction (Unknown, Verified 06/07/23 10:57) Dizziness, issue with blood pressure irbesartan Adverse Reaction (Unknown, Verified 06/07/23 10:57) severe GI upset ketorolac Adverse Reaction (Unknown, Verified 06/07/23 10:57) chest px levofloxacin [Levaquin] Adverse Reaction (Unknown, Verified 06/07/23 10:57) redness, throat closing losartan Adverse Reaction (Unknown, Verified 06/07/23 10:57) Abdominal pain/bloating celecoxib Adverse Reaction (Verified 06/07/23 10:57) ear pain Most antibiotics Allergy (Unknown, Uncoded 06/07/23 10:57) unknown Mycin drugs Allergy (Unknown, Uncoded 06/07/23 10:57) Unk pain medication Allergy (Unknown, Uncoded 06/07/23 10:57) unknown harriet? Allergy (Unknown, Uncoded 06/07/23 10:57) unk surgical tape Adverse Reaction (Unknown, Uncoded 06/07/23 10:57) rash HPI NProblem-Left hand, trigger middle finger HPI Details Leslye is a 68 year old right hand dominant Diabetic woman who presents with complaints of left hand pain & stiffness. She complains primarily of stiffness in her left index & middle fingers, along with pain and locking. She says she is not able to bend her fingers to make a fist in the last few days, saying her fingers were frozen on 06/04/23. She says today is the first day since that she can bend her index or middle fingers at all. She is concerned she has a trigger finger, and she has painful clicking in her fingers when moving them. She is a Diabetic, which is well-controlled. She denies any falls or known injury. She denies any prior treatment. [facility] Medical History Ischemic heart disease Hamartoma Hyperlipidemia Gastroesophageal reflux disease Surgical History History of eyelid surgery History of lung surgery Family History Father No problems noted. Mother Tongue cancer Smoker Heart problem History of heart attack Sister No problems noted. Sister No problems noted. 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 Cognitive needs: No Hearing needs: No Vision needs: Yes Review of Systems Const All systems reviewed & are unremarkable except as noted in HPI and below Physical Exam Vital Signs: BMI result Body Mass Index 28.2 Const General: cooperative, healthy appearing and no acute distress Orientation/consciousness: patient oriented x3 HEENT Head: Yes normocephalic and Yes atraumatic Eyes EOM: EOMs intact bilaterally Resp Effort & Inspection: normal respiratory effort and able to speak in complete sentences Cardio Jugular venous distension: no JVD Skin General skin exam: turgor normal Rashes: no rashes Neuro General: patient oriented x3 Extrem Other: Evaluation of Left Upper Extremity: The patient is alert, oriented, and in no acute distress Neuro: Median, Ulnar, Radial nerves motor and sensory intact and sensation is normal to the tips of all digits Vascular: Cap refill brisk ROM: She demonstrates her middle finger would lock with her MCP joint at ~20 degrees of flexion, and her PIP joint at ~20 degrees of flexion With encouragement, and following stretching exercises today in clinic, she could bring her fingers closed to a fist and back into full extension [place] some minor catching in the area of the middle finger a1 breanne with motion No visible locking or catching Skin: No lacerations or abrasions. General: No Ecchymosis. No Erythema or evidence of infection. Radiographs: 3 views of the right hand, with attention to the middle finger, from 04/29/23 were reviewed by me today in clinic. They show no fractures, dislocations, or arthritic changes. Psych Appearance: grossly normal Affect: normal affect Attitude: cooperative Office Procedures Fracture Care Details: No fracture, injection Fracture Billing Code: Fracture Billing Code Assessment & Plan Assessment & Plan (1) Tenosynovitis of finger: Code(s): M65.9 - Synovitis and tenosynovitis, unspecified (2) Trigger finger, left middle finger: Code(s): M65.332 - Trigger finger, left middle finger (3) Type 2 diabetes mellitus with unspecified complications: Code(s): E11.8 - Type 2 diabetes mellitus with unspecified complications Plan Assessment & Plan: 1. Left middle finger pre-trigger tenosynovitis/possible trigger finger I educated her about these conditions I discussed operative and non-operative treatment options The patient would like to proceed with an injection I discussed activity modification, she is to work on ROM exercises at home Injection #1: The risks and benefits of a steroid injection including but not limited to risk of damage to blood vessels, nerves, tendons, infection, skin bleaching, failure to improve symptoms, increased pain, and possible need for further injections or other intervention were discussed with the patient and the patient wishes to proceed with the steroid injection. Once consent was obtained, I sterilely prepped the area over the A1 breanne of the flexor tendon sheath of the left middle. I then injected the flexor tendon sheath with a combination of 1 mL of dexamethasone (4mg/ml), and 1% lidocaine. The patient tolerated the procedure well with no complications. If the patient continues to have locking and catching 4-6 weeks following this injection, they may call to schedule appointment to discuss alternative treatment options Follow-up prn Scribed for Carine Benavidez MD by Roman Brenner, medical director of hospice, on 06/07/23 at 11:20 AM, EST. Coding Level of Care Code New Pt Level 3 (11569) Diagnoses Tenosynovitis of finger M65.9 Trigger finger, left middle finger M65.332 Type 2 diabetes mellitus with unspecified complications E11.8 CPT Codes Fracture Care - Fracture Billing Code: Fracture Billing Code ([id number])
== END 2023-06-07 11:31 | disposition home or self-care (01) ==
PROVIDERS: PCP Nurse Practitioner Family; Visit Provider Orthopaedic Surgery
DX: M65.332 Trigger finger, left middle finger (principal); M65.9 Synovitis and tenosynovitis, unspecified; E11.8 Type 2 diabetes mellitus with unspecified complications
CPT/HCPCS: 20550; 99213

== ENCOUNTER → 2023-06-07 10:41 | Outpatient (BNVA) | payer MEDICARE, SELFPAY | PROVIDERS: PCP Nurse Practitioner Family; Visit Provider Orthopaedic Surgery | DX: M65.9 Synovitis and tenosynovitis, unspecified (principal); M65.332 Trigger finger, left middle finger; E11.8 Type 2 diabetes mellitus with unspecified complications | CPT/HCPCS: 20550; 99212; J1100 ==

== ENCOUNTER 2023-07-26 11:20 | Outpatient (AMB) | payer MEDICARE, SELFPAY ==
--- NOTE | 2023-07-26 11:25 | A.OFFVIS_ITS ---
Vital Signs 07/26/23 11:26 Height 5 ft 7 in Weight 180 lb BMI 28.2 Intake Visit Reasons: O/V LT MF S/P trig inj/disc sx Intake Note: Leslye 68 yr old right hand dominant female presents today for her follow up visit for her left middle finger S/P trigger injection from 06/07/23 . States injection did not help and would like to discuss surgery. Patient expresses that her pain is getting worse and the injection didn't help. Allergies rosuvastatin Allergy (Intermediate, Verified 07/26/23 11:27) Unknown acetaminophen [From Roxicet] Allergy (Unknown, Verified 07/26/23 11:27) Heightened pain amlodipine Allergy (Unknown, Verified 07/26/23 11:27) Unsure amoxicillin Allergy (Unknown, Verified 07/26/23 11:27) unknown erythromycin base Allergy (Unknown, Verified 07/26/23 11:27) Unknown fexofenadine [From Anika] Allergy (Unknown, Verified 07/26/23 11:27) unknown ibuprofen Allergy (Unknown, Verified 07/26/23 11:27) Unkown NSAIDS (Non-Steroidal Anti-Inflamma Allergy (Unknown, Verified 07/26/23 11:27) Unknown oxycodone [From Roxicet] Allergy (Unknown, Verified 07/26/23 11:27) Heightened pain Peanut Butter Allergy (Unknown, Verified 07/26/23 11:27) increased heart rate Penicillins Allergy (Unknown, Verified 07/26/23 11:27) unknown propranolol Allergy (Unknown, Verified 07/26/23 11:27) cramps tramadol [Ultram] Allergy (Unknown, Verified 07/26/23 11:27) unknown ciprofloxacin [Cipro] Adverse Reaction (Unknown, Verified 07/26/23 11:27) jittery ezetimibe [Zetia] Adverse Reaction (Unknown, Verified 07/26/23 11:27) Shortness of breath hydrochlorothiazide Adverse Reaction (Unknown, Verified 07/26/23 11:27) Dizziness, issue with blood pressure irbesartan Adverse Reaction (Unknown, Verified 07/26/23 11:27) severe GI upset ketorolac Adverse Reaction (Unknown, Verified 07/26/23 11:27) chest px levofloxacin [Levaquin] Adverse Reaction (Unknown, Verified 07/26/23 11:27) redness, throat closing losartan Adverse Reaction (Unknown, Verified 07/26/23 11:27) Abdominal pain/bloating celecoxib Adverse Reaction (Verified 07/26/23 11:27) ear pain Most antibiotics Allergy (Unknown, Uncoded 06/07/23 10:57) unknown Mycin drugs Allergy (Unknown, Uncoded 06/07/23 10:57) Unk pain medication Allergy (Unknown, Uncoded 06/07/23 10:57) unknown harriet? Allergy (Unknown, Uncoded 06/07/23 10:57) unk surgical tape Adverse Reaction (Unknown, Uncoded 06/07/23 10:57) rash HPI HPI O/V LT MF S/P trig inj/disc sx: Details: Leslye is a 68 year old right hand dominant Diabetic woman who Returns to discuss her left middle trigger finger, S/P injection on 06/07/23. She says the injection did not help and she continues to have painful locking of her middle finger. She would like to discuss surgery She is a Diabetic, which is well-controlled. She denies any falls or known injury. She denies any prior treatment. She says she can't take NSAIDs or Oxycodone due to them causing her increased pain. She finds some relief frm Vicodin. [facility] Medical History Ischemic heart disease Hamartoma Hyperlipidemia Gastroesophageal reflux disease Surgical History History of eyelid surgery History of lung surgery Family History Father No problems noted. Mother Tongue cancer Smoker Heart problem History of heart attack Sister No problems noted. Sister No problems noted. 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 Cognitive needs: No Hearing needs: No Vision needs: Yes Physical Exam Vital Signs: BMI result Body Mass Index 28.2 Extrem Other: Evaluation of Left Upper Extremity: The patient is alert, oriented, and in no acute distress Neuro: Median, Ulnar, Radial nerves motor and sensory intact and sensation is normal to the tips of all digits Vascular: Cap refill brisk ROM: She demonstrates her middle finger would lock with her MCP joint at ~20 degrees of flexion, and her PIP joint at ~20 degrees of flexion [place] some minor catching in the area of the middle finger a1 breanne with motion No visible locking or catching Assessment & Plan Assessment & Plan (1) Trigger finger, left middle finger: Code(s): M65.332 - Trigger finger, left middle finger Category: Medical (2) Tenosynovitis of finger: Code(s): M65.9 - Synovitis and tenosynovitis, unspecified Category: Medical (3) Type 2 diabetes mellitus with unspecified complications: Code(s): E11.8 - Type 2 diabetes mellitus with unspecified complications Category: Medical Plan Assessment & Plan: 1. Left middle finger trigger finger, S/P injection Date of injection: 06/07/23 I educated her about these conditions I discussed operative and non-operative treatment options The patient would like to proceed with surgery The risks and benefits of operative treatment were discussed with the patient and the patient wishes to proceed with surgery. These risks include, but are not limited to risk of damage to blood vessels, nerves, tendons, infection, recurrence, incomplete relief of preoperative symptoms, persistent pain, possible need for further surgery and the risks associated with regional blocks and anesthesia. The plan is to take the patient to the operating room sometime in the next few weeks for the following procedures: 1. Left middle finger trigger release, under local All of the preoperative paperwork including the consent was reviewed today. All the patient's questions were answered. The patient understands that they will be contacted by our cabin cleaning supervisor soon to schedule this procedure She says she can't take NSAIDs or Oxycodone due to them causing her increased pain. She finds some relief frm Vicodin. She denies blood thinners, asthma, heart, lung, kidney issues She is a Diabetic, her most recent HgA1c was 6.9% on 05/03/23 Scribed for Carine Benavidez MD by Roman Brenner medical technologist prn, on 07/26/23 at 11:55 AM, EST. Coding Level of Care Code Est Pt Level 4 (76600) Diagnoses Trigger finger, left middle finger M65.332 Tenosynovitis of finger M65.9 Type 2 diabetes mellitus with unspecified complications E11.8
[2023-07-26 11:26] VITALS: BMI 28.2
== END 2023-07-26 12:10 | disposition home or self-care (01) ==
PROVIDERS: PCP Nurse Practitioner Family; Visit Provider Orthopaedic Surgery
DX: M65.332 Trigger finger, left middle finger (principal); M65.9 Synovitis and tenosynovitis, unspecified; E11.8 Type 2 diabetes mellitus with unspecified complications
CPT/HCPCS: 99214

== ENCOUNTER → 2023-07-26 11:20 | Outpatient (BNVA) | payer MEDICARE, SELFPAY | PROVIDERS: PCP Nurse Practitioner Family; Visit Provider Orthopaedic Surgery | DX: M65.332 Trigger finger, left middle finger (principal); M65.9 Synovitis and tenosynovitis, unspecified; E11.8 Type 2 diabetes mellitus with unspecified complications | CPT/HCPCS: 99212 ==

== ENCOUNTER 2023-08-10 10:08 | Outpatient (AMB) | payer MEDICARE, SELFPAY ==
[2023-08-10 10:12] VITALS: BP 126/80; PULSE 73; TEMP 36.3; O2SAT 98
--- NOTE | 2023-08-10 10:12 | AM.OFFWIN_ITS ---
Intake Vital Signs 08/10/23 10:12 Height 5 ft 7 in BMI Reason not done Patient refused/unable BP 126/80 Blood Pressure Location Lt brachial Position Sitting Pulse 73 Pulse Source Pulse Oximeter Temp 97.4 F Temp Source Temporal Artery Scan Pulse Oximetry (%) 98 Oxygen Delivery Method Room Air Intake Visit Reasons: EP Cough, congestion, sore throat Intake Note: pt is here today for cough congestion sore throat started tuesday Patient Tobacco Use Status: Former Tobacco user Allergies rosuvastatin Allergy (Intermediate, Verified 08/10/23 10:15) Unknown acetaminophen [From Roxicet] Allergy (Unknown, Verified 08/10/23 10:15) Heightened pain amlodipine Allergy (Unknown, Verified 08/10/23 10:15) Unsure amoxicillin Allergy (Unknown, Verified 08/10/23 10:15) unknown erythromycin base Allergy (Unknown, Verified 08/10/23 10:15) Unknown fexofenadine [From Anika] Allergy (Unknown, Verified 08/10/23 10:15) unknown ibuprofen Allergy (Unknown, Verified 08/10/23 10:15) Unkown NSAIDS (Non-Steroidal Anti-Inflamma Allergy (Unknown, Verified 08/10/23 10:15) Unknown oxycodone [From Roxicet] Allergy (Unknown, Verified 08/10/23 10:15) Heightened pain Peanut Butter Allergy (Unknown, Verified 08/10/23 10:15) increased heart rate Penicillins Allergy (Unknown, Verified 08/10/23 10:15) unknown propranolol Allergy (Unknown, Verified 08/10/23 10:15) cramps tramadol [Ultram] Allergy (Unknown, Verified 08/10/23 10:15) unknown ciprofloxacin [Cipro] Adverse Reaction (Unknown, Verified 08/10/23 10:15) jittery ezetimibe [Zetia] Adverse Reaction (Unknown, Verified 08/10/23 10:15) Shortness of breath hydrochlorothiazide Adverse Reaction (Unknown, Verified 08/10/23 10:15) Dizziness, issue with blood pressure irbesartan Adverse Reaction (Unknown, Verified 08/10/23 10:15) severe GI upset ketorolac Adverse Reaction (Unknown, Verified 08/10/23 10:15) chest px levofloxacin [Levaquin] Adverse Reaction (Unknown, Verified 08/10/23 10:15) redness, throat closing losartan Adverse Reaction (Unknown, Verified 08/10/23 10:15) Abdominal pain/bloating celecoxib Adverse Reaction (Verified 08/10/23 10:15) ear pain Most antibiotics Allergy (Unknown, Uncoded 08/10/23 10:15) unknown Mycin drugs Allergy (Unknown, Uncoded 08/10/23 10:15) Unk pain medication Allergy (Unknown, Uncoded 08/10/23 10:15) unknown harriet? Allergy (Unknown, Uncoded 08/10/23 10:15) unk surgical tape Adverse Reaction (Unknown, Uncoded 08/10/23 10:15) rash Do you need a note to return to daycare/school/sports/work: No HPI HPI Comments History of Present Illness Details Patient is a 68yo F who presents to office with cold symptoms She states Tuesday onset + ST, worse with coughing No pain scale given + congestion, headache, cough Cough intermittent phlegm No fever or chills Taking OTC mucinex x 1 day without relief 3 covid tests at home were negative No other complaints [facility] Medical History Ischemic heart disease Hamartoma Hyperlipidemia Gastroesophageal reflux disease Surgical History History of eyelid surgery History of lung surgery Family History Father No problems noted. Mother Tongue cancer Smoker Heart problem History of heart attack Sister No problems noted. Sister No problems noted. 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 Cognitive needs: No Hearing needs: No Vision needs: Yes Review of Systems Const Denies body aches, Denies chills, Reports fatigue, Denies fever(s) and Reports headache(s) ENT Denies otalgia, Reports headache(s), Reports hoarseness, Reports nasal discharge, Reports sore throat and Denies throat swelling Card Denies chest pain and Denies dyspnea Resp Reports chest congestion, Reports cough and Denies dyspnea GI Denies abdominal pain Musc Denies myalgias Neuro Reports headache(s) Endo Reports fatigue Aller/Immun Denies throat swelling Physical Exam Vital Signs: Last Vital Signs Temp 97.4 F 08/10/23 10:12 Pulse 73 08/10/23 10:12 BP 126/80 08/10/23 10:12 Pulse Ox 98 08/10/23 10:12 Oxygen Delivery Method Room Air 08/10/23 10:12 General: Non-toxic, NAD. Speaking full sentences. Skin: Warm dry throughout Eye: EOMI HENT: Airway patent. Uvula midline. Minimal pharyngeal erythema without exudates or edema. 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 Bilateral canals clear. Slight fluid behind TMs. TM non-erythematous, non- bulging. No TM perforation or hemotympanum noted. Respiratory: CTA bilaterally. No wheezes, rales or rhonchi Cardiac: RRR. No murmur MSK: Full ROM extremities. Neurology: A/O. No aphasia or facial droop. Gait without abnormality Psych: Good mood and affect Results AMB Rapid Strep AMB Rapid Strep Negative Last Edit by RADHA Adrian on 08/10/23 10:2 4 Assessment & Plan Assessment & Plan (1) Upper respiratory infection: Code(s): J06.9 - Acute upper respiratory infection, unspecified Qualifiers: URI type: unspecified viral URI Qualified Code(s): J06.9 - Acute upper respiratory infection, unspecified Plan: Patient seen and evaluated. Lungs CTA Strep negative Tessalon Increase fluids/voice rest Patient gave verbal understanding and had no additional questions or concerns at time of discharge All questions answered Orders: Orders AMB Rapid Strep Screen Today Z13.9 - Encounter for screening, unspecified Medications: New benzonatate 200 mg PO BID-TID PRN 14 caps 0RF cough Coding Level of Care Code Est Pt Level 3 (62182) Diagnoses Viral upper respiratory tract infection J06.9 URI type: unspecified viral URI
== END 2023-08-10 12:48 | disposition home or self-care (01) ==
PROVIDERS: PCP Nurse Practitioner Family; Visit Provider Physician Assistant
DX: J06.9 Acute upper respiratory infection, unspecified (principal); J02.9 Acute pharyngitis, unspecified
CPT/HCPCS: 87880; 99213

== ENCOUNTER 2023-08-31 09:27 | Outpatient (AMB) | payer MEDICARE, SELFPAY ==
--- NOTE | 2023-08-31 09:37 | MHC.PC.OV ---
Vital Signs 08/31/23 09:39 08/31/23 10:19 Height 5 ft 7 in Weight 194 lb BMI 30.4 BP 160/110 H 136/88 Blood Pressure Location Lt brachial Position Sitting Pulse 78 Pulse Source Pulse Oximeter Pulse Oximetry (%) 98 Oxygen Delivery Method Room Air Intake Visit Reasons: 4M F/U Intake Note: Patient here for HTN f/u. Allergies rosuvastatin Allergy (Intermediate, Verified 08/31/23 09:40) Unknown acetaminophen [From Roxicet] Allergy (Unknown, Verified 08/31/23 09:40) Heightened pain amlodipine Allergy (Unknown, Verified 08/31/23 09:40) Unsure amoxicillin Allergy (Unknown, Verified 08/31/23 09:40) unknown erythromycin base Allergy (Unknown, Verified 08/31/23 09:40) Unknown fexofenadine [From Anika] Allergy (Unknown, Verified 08/31/23 09:40) unknown ibuprofen Allergy (Unknown, Verified 08/31/23 09:40) Unkown NSAIDS (Non-Steroidal Anti-Inflamma Allergy (Unknown, Verified 08/31/23 09:40) Unknown oxycodone [From Roxicet] Allergy (Unknown, Verified 08/31/23 09:40) Heightened pain Peanut Butter Allergy (Unknown, Verified 08/31/23 09:40) increased heart rate Penicillins Allergy (Unknown, Verified 08/31/23 09:40) unknown propranolol Allergy (Unknown, Verified 08/31/23 09:40) cramps tramadol [Ultram] Allergy (Unknown, Verified 08/31/23 09:40) unknown bempedoic acid Adverse Reaction (Mild, Verified 08/31/23 09:42) Cough and excessive sweating ciprofloxacin [Cipro] Adverse Reaction (Unknown, Verified 08/31/23 09:40) jittery ezetimibe [Zetia] Adverse Reaction (Unknown, Verified 08/31/23 09:40) Shortness of breath hydrochlorothiazide Adverse Reaction (Unknown, Verified 08/31/23 09:40) Dizziness, issue with blood pressure irbesartan Adverse Reaction (Unknown, Verified 08/31/23 09:40) severe GI upset ketorolac Adverse Reaction (Unknown, Verified 08/31/23 09:40) chest px levofloxacin [Levaquin] Adverse Reaction (Unknown, Verified 08/31/23 09:40) redness, throat closing losartan Adverse Reaction (Unknown, Verified 08/31/23 09:40) Abdominal pain/bloating celecoxib Adverse Reaction (Verified 08/31/23 09:40) ear pain Most antibiotics Allergy (Unknown, Uncoded 08/31/23 09:40) unknown Mycin drugs Allergy (Unknown, Uncoded 08/31/23 09:40) Unk pain medication Allergy (Unknown, Uncoded 08/31/23 09:40) unknown harriet? Allergy (Unknown, Uncoded 08/31/23 09:40) unk surgical tape Adverse Reaction (Unknown, Uncoded 08/31/23 09:40) rash Medication List - Last Reconciled 08/31/23 by RUIZ Blue albuterol sulfate 90 mcg/actuation 1 inh inhalation QID PRN 90 days aspirin (Enteric Coated Aspirin) 81 mg PO DAILY blood sugar diagnostic As directed dulaglutide 1.5 mg subcut QWEEK epinephrine (EpiPen) 0.3 mg (0.3 mL) IM Q4H PRN olmesartan 5 mg PO DAILY OneTouch Verio test strips (blood sugar diagnostic) Use to check blood sugar once a day or if having symptoms of hypo/hyperglycemia. NS prednisone 50 mg PO DAILY 5 days Tobacco use date assessed: 05/03/23 Fall risk assessment: No Falls in past year Last assessed Fall Risk: 08/31/23 Dental Screening Dental Screen Date: 05/03/23 HPI 4M F/U HPI Details Pt c/o cough. She reports this is intermittently productive. Pt also reports lung congestion. She was recently seen in the walk-in (see note), and treated with a zpak for a tooth problem by her dentist in the last 1.5 weeks. Will order chest XR. Will send prednisone. Recommended OTC cetirizine as well. Denies fever, chills, and chest pain. HTN: Pt takes her blood pressure at home and it is in the 130s/70s-80s. [facility] Medical History Ischemic heart disease Hamartoma Hyperlipidemia Gastroesophageal reflux disease Surgical History History of eyelid surgery History of lung surgery Family History Father No problems noted. Mother Tongue cancer Smoker Heart problem History of heart attack Sister No problems noted. Sister No problems noted. Social History (Updated 06/07/23 @ 11:05 by Mercedes Silva 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 33505 - PHQ-9 Billing: Patient declined-do not bill Source: Developed by Drs. Charles Valencia, Ingrid Vásquez, Ramiro Watts and colleagues, with an educational andie from [employer]. Thrive Questionnaire Date Thrive assessed: 08/31/23 What is your living situation today?: I choose not to answer this question Within the past 12 months, did the food you bought not last and you didn't have the money to get more?: I choose not to answer this question Within the past 12 months, did you worry whether your food would run out before you got money to buy more?: I choose not to answer this question Do you have trouble paying for medicines?: I choose not to answer this question Do you have trouble getting transportation to medical appointments?: I choose not to answer this question Do you have trouble paying your heating and electricity bill?: I choose not to answer this question Do you have trouble taking care of your child, family member or friend?: I choose not to answer this question Do you have trouble with day-to-day activities such as bathing, preparing meals, shopping, managing finances, etc.?: I choose not to answer this question Are you currently unemployed and looking for a job?: I choose not to answer this question Are you interested in more education?: I choose not to answer this question Please select the resources that you would like help with: None Currently or been in a relationship where the following occur: I choose not to answer THRIVE Score: 0 CAT-7 AMB Questionnaire CAT-7 Date CAT - 7 assessed: 08/31/23 Source: Developed by Drs. Charles Valencia, Ingrid Vásquez, Ramiro Watts and colleagues, with an educational andie from [employer]. CAT-7 Assessment Billing CAT-7 Assessment Tool: pt declined-do not bill Review of Systems Const Reports as per HPI Physical exam (Primary Care) Vital Signs: Last Vital Signs Pulse 78 08/31/23 09:39 BP 136/88 08/31/23 10:19 Pulse Ox 98 08/31/23 09:39 Oxygen Delivery Method Room Air 08/31/23 09:39 BMI result Body Mass Index 30.4 Tobacco/Smoking Status: Tobacco use Status Tobacco use date assessed 05/03/23 08/31/23 09:37 Patient Tobacco Use Status Former Tobacco user 08/31/23 09:37 e-Cigarette/Vaping Use Never Used 08/31/23 09:37 Thrive Assessment: Date of Thrive Assessment Date Thrive assessed 08/31/23 08/31/23 09:47 Currently or been in a relationship where the following occur: I choose not to answer Const General: cooperative Orientation/consciousness: patient oriented x3 Neck Neck: Yes no lymphadenopathy Resp Other: diminished lungs though moving air Effort & Inspection: normal respiratory effort Cardio Rate: regular rate Rhythm: regular rhythm Heart sounds: S1 normal heart sound present and S2 normal heart sound present Neuro General: patient oriented x3 Psych Appearance: grossly normal Mental Status: mental status grossly normal Speech and movement: Normal speech and movement present Affect: normal affect Attitude: cooperative Thought process: Normal thought process present Thought content: Normal thought content present Insight: Good insight present (Psych) Judgement: Good judgement present (Psych) Assessment and Plan Assessment & Plan (1) Pulmonary congestion: Code(s): R09.89 - Other specified symptoms and signs involving the circulatory and respiratory systems Plan: Chest XR ordered, prednisone sent (2) Cough: Code(s): R05.9 - Cough, unspecified Plan: Chest XR ordered, prednisone sent, pt aware BS will rise with prednisone (3) HTN (hypertension): Code(s): I10 - Essential (primary) hypertension Plan: BP much more stable at home. Plan The patient agreed to the use of a medical investigator for this encounter. Scribed for RUIZ Llamas by Zoe Mack medical investigator, on 08/31/2023 at 10:00 EST. Orders: Orders XR chest 2V Today R05.9 - Cough, unspecified, R09.89 - Other specified symptoms and signs involving the circulatory and respiratory systems Complete Blood Count Auto Diff Today R05.9 - Cough, unspecified, R09.89 - Other specified symptoms and signs involving the circulatory and respiratory systems Medications: New prednisone 50 mg PO DAILY 5 tabs 0RF 5 days Coding Level of Care Code Est Pt Level 3 (92567) Diagnoses Pulmonary congestion R09.89 Cough R05.9 HTN (hypertension) I10
[2023-08-31 09:39] VITALS: BP 160/110; PULSE 78; O2SAT 98; BMI 30.4
[2023-08-31 10:19] VITALS: BP 136/88
== END 2023-08-31 10:27 | disposition home or self-care (01) ==
PROVIDERS: PCP Nurse Practitioner Family; Visit Provider Nurse Practitioner Family
DX: R09.89 Other specified symptoms and signs involving the circulatory and respiratory systems (principal); R05.9 Cough, unspecified; I10 Essential (primary) hypertension
CPT/HCPCS: 99213

== ENCOUNTER 2023-08-31 10:26 | Outpatient (REF) | payer MEDICARE, SELFPAY ==
--- NOTE | ~2023-08-31 | XR_ITS ---
EXAMINATION: XR CHEST CLINICAL INFORMATION: Cough COMPARISON: CT chest 12/09/2021, chest x-ray 08/03/2018 TECHNIQUE: 2 views of the chest were obtained. FINDINGS: There is no gross pneumothorax. Degenerative changes in the thoracic spine. Heart size is normal. Redemonstration of postsurgical changes in the right hemithorax. No pleural effusion. No new focal consolidation to suggest pneumonia. XR/XR chest 2V IMPRESSION: Redemonstration of postsurgical changes in the right hemithorax. No new focal consolidation to suggest pneumonia.
[2023-08-31 13:18] LABS: MANUAL DIFF FLAG NO
[2023-08-31 13:23] LABS: Basophils Percent Auto 0.3 % (0-2); Eosinophils Absolute Auto 0.3 X10*3/uL (0.0-0.4); Eosinophils Percent Auto 3.9 % (0-4); Hematocrit 43.9 % (37.0-47.0); Hemoglobin 14.8 g/dl (12.0-16.0); Imm Gran Abs Auto 0.01 X10*3/uL (0.00-0.03); Imm Gran Pct Auto 0.1 % (0.0-0.4); Lymphocytes Absolute Auto 1.5 X10*3/uL (1.2-4.9); Lymphocytes Percent Auto 22.4 % (20-40); Mean Corpuscular HGB Conc 33.7 g/dl (31.0-35.0); Mean Corpuscular Hemoglobin 29.5 pg (27.0-33.0); Mean Corpuscular Volume 87.5 fL (80.0-98.0); Monocytes Absolute Auto 0.4 X10*3/uL (0.1-1.2); Monocytes Percent Auto 5.3 % (2-11); Neutrophils Absolute Auto 4.6 x10*3/uL (2.0-8.3); Platelet Count 311 X10*3/uL (160-400); Red Blood Count 5.02 X10*6/uL (4.20-5.50); White Blood Count 6.7 X10*3/uL (4.8-10.8)
== END 2023-08-31 10:27 | disposition home or self-care (01) ==
LOC: HO.HMGCX 10:26
PROVIDERS: PCP Nurse Practitioner Family; Visit Provider Nurse Practitioner Family
DX: R09.89 Other specified symptoms and signs involving the circulatory and respiratory systems (principal); R05.9 Cough, unspecified
CPT/HCPCS: 36415; 71046; 85025

== ENCOUNTER 2023-10-03 13:15 | Day surgery (SDC) | payer MEDICARE, SELFPAY ==
[2023-10-03 14:36] VITALS: BP 180/90; PULSE 76; RESP 18; TEMP 36.7; O2SAT 96; BMI 28.2
--- NOTE | 2023-10-03 14:52 | MHC.SHP ---
Pre-Procedural Eval Section A - 24 Hr Update-Section A only Date of Service: 10/03/23 The patient is an INPATIENT: No Changes since office visit: No Cold of Flu in the past 2 weeks, No New Medical Problems, No Changes in Medication and No Patient answered all questions The patient has been examined within 24 hours of the surgical procedure. The History & Physical has been completed within 30 days and I have reviewed it.: Yes Section B - Complete if H&P > 30 days Chief Complaint: Trigger finger, left middle finger Allergies: Allergies Allergy/AdvReac Type Severity Reaction Status Date / Time rosuvastatin Allergy Intermediate Unknown Verified 08/31/23 09:40 acetaminophen [From Roxicet] Allergy Unknown Heightened Verified 08/31/23 09:40 pain amlodipine Allergy Unknown Unsure Verified 08/31/23 09:40 amoxicillin Allergy Unknown unknown Verified 08/31/23 09:40 erythromycin base Allergy Unknown Unknown Verified 08/31/23 09:40 fexofenadine [From Anika] Allergy Unknown unknown Verified 08/31/23 09:40 ibuprofen Allergy Unknown Unkown Verified 08/31/23 09:40 NSAIDS (Non-Steroidal Allergy Unknown Unknown Verified 08/31/23 09:40 Anti-Inflamma oxycodone [From Roxicet] Allergy Unknown Heightened Verified 08/31/23 09:40 pain Peanut Butter Allergy Unknown increased Verified 08/31/23 09:40 heart rate Penicillins Allergy Unknown unknown Verified 08/31/23 09:40 propranolol Allergy Unknown cramps Verified 08/31/23 09:40 tramadol [Ultram] Allergy Unknown unknown Verified 08/31/23 09:40 bempedoic acid AdvReac Mild Cough and Verified 08/31/23 09:42 excessive sweating ciprofloxacin [Cipro] AdvReac Unknown jittery Verified 08/31/23 09:40 ezetimibe [Zetia] AdvReac Unknown Shortness Verified 08/31/23 09:40 of breath hydrochlorothiazide AdvReac Unknown Dizziness, Verified 08/31/23 09:40 issue with blood pressure irbesartan AdvReac Unknown severe GI Verified 08/31/23 09:40 upset ketorolac AdvReac Unknown chest px Verified 08/31/23 09:40 levofloxacin [Levaquin] AdvReac Unknown redness, Verified 08/31/23 09:40 throat closing losartan AdvReac Unknown Abdominal Verified 08/31/23 09:40 pain/bloating celecoxib AdvReac ear pain Verified 08/31/23 09:40 Most antibiotics Allergy Unknown unknown Uncoded 08/31/23 09:40 Mycin drugs Allergy Unknown Unk Uncoded 08/31/23 09:40 pain medication Allergy Unknown unknown Uncoded 08/31/23 09:40 harriet? Allergy Unknown unk Uncoded 08/31/23 09:40 surgical tape AdvReac Unknown rash Uncoded 08/31/23 09:40 Exam Exam Comment: Left middle finger trigger finger Plan Diagnosis/Plan: Unchanged I have reviewed the history and physical and performed a pertinent physical examination on my patient. No changes have occurred unless specified. Time Spent With Patient Time: Total time managing care of this patient today ____ minutes.
--- NOTE | 2023-10-03 14:52 | W.PM.OPN ---
Operative Note Operative Note Date of Service: 10/03/23 Narrative: Operative Note Preop diagnosis: 1. Left middle finger Trigger finger Postop diagnosis: Same Procedure: 1. Left middle finger A1 breanne release 2. 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 No locking or catching after A1 breanne release and flexor tenosynovectomy. Of note, patient did have some locking and catching of the left index finger. EBL: Less than 5 mL Tourniquet time: None Specimens: None Complications: None Disposition: Brought to recovery room in stable condition Plan: Follow-up for 10-14 days for wound check and suture removal Indications: The patient is 68 years old, with a left middle finger trigger finger that has been unresponsive to nonoperative management. The risks and benefits of operative treatment including but not limited to risk of damage to blood vessels, nerves, tendons, infection, persistent pain, persistent symptoms, recurrence or possible need for additional surgery were discussed with the patient and the patient wishes to proceed with surgery. Procedure: Once consent was obtained a local block was performed in the preop area using a combination of 1% lidocaine with epinephrine. The patient was then brought back to the operating suite and placed on the operative table in supine position. The left upper extremity was prepped and draped in a standard surgical fashion. Once assured that we had a good block, a 1.5 cm oblique incision was made centered over the A1 breanne of the left middle finger . The incision was made through the skin to the subcutaneous tissues using a #15 blade. Careful dissection was made down to the level of the A1 breanne using tenotomy scissors, with care being taken to protect the nearby neurovascular structures. A longitudinal incision was made in the A1 breanne 1st using a #15 blade, then using tenotomy scissors under direct visualization. The A1 breanne was noted to be thickened with an hourglass deformity of the FDS tendon. She also had some hypertrophic tenosynovium about the FDS tendon. I performed a tenosynovectomy by dissecting the hypertrophic tenosynovium off of the flexor digitorum superficialis tendon.. Following our A1 breanne release and flexor tenosynovectomy, we no longer saw any locking or catching of the digit with flexion and extension. She did however have some locking and catching of the left index finger. Once satisfied with our A1 breanne release the wound was copiously irrigated with normal saline and hemostasis was obtained with a brief period of local pressure. The skin edges were reapproximated with some 5.0 nylon suture material and a sterile dressing was applied. The patient appears to have tolerated the procedure well and with no complications. All digits were well vascularized at the conclusion of the case.
[2023-10-03 16:32] VITALS: BP 183/86; PULSE 68; RESP 18; TEMP 36.6; O2SAT 98
== END 2023-10-03 16:40 | disposition home or self-care (01) ==
PROVIDERS: PCP Nurse Practitioner Family; Visit Provider Orthopaedic Surgery
PROC: (CPT 26055; principal; 2023-10-03 14:10)
DX: M65.332 Trigger finger, left middle finger (principal); M67.844 Other specified disorders of tendon, left hand; E11.9 Type 2 diabetes mellitus without complications; I25.9 Chronic ischemic heart disease, unspecified; E78.5 Hyperlipidemia, unspecified; K21.9 Gastro-esophageal reflux disease without esophagitis; Z88.1 Allergy status to other antibiotic agents; Z88.5 Allergy status to narcotic agent; Z88.8 Allergy status to other drugs, medicaments and biological substances; Z87.891 Personal history of nicotine dependence; Z98.890 Other specified postprocedural states
CPT/HCPCS: 26055; J0171

== ENCOUNTER → 2023-10-03 13:15 | Outpatient (BNV) | payer MEDICARE, SELFPAY | PROVIDERS: PCP Nurse Practitioner Family; Visit Provider Orthopaedic Surgery | DX: M65.332 Trigger finger, left middle finger (principal) | CPT/HCPCS: 26055 ==

== ENCOUNTER 2023-10-13 11:24 | Outpatient (AMB) | payer MEDICARE, SELFPAY ==
[2023-10-13 11:25] VITALS: BP 160/100; PULSE 74; O2SAT 97
--- NOTE | 2023-10-13 11:25 | A.OFFPC_ITS ---
Vital Signs 10/13/23 11: Height 5 ft 7 in BMI Reason not done Patient refused/unable BP 160/100 H Blood Pressure Location Rt brachial Position Sitting Pulse 74 Pulse Source Pulse Oximeter Pulse Oximetry (%) 97 Intake Visit Reasons: Elevated BP Intake Note: pt is here for elevated BP Weights And Measures Sealer Required: No Accompanied by: Self / Same As Patient Allergies rosuvastatin Allergy (Intermediate, Verified 10/13/23:) Unknown amlodipine Allergy (Unknown, Verified 10/13/23) Unsure amoxicillin Allergy (Unknown, Verified 10/13/23) unknown erythromycin base Allergy (Unknown, Verified 10/13/23) Unknown fexofenadine [From Anika] Allergy (Unknown, Verified 10/13/23) unknown ibuprofen Allergy (Unknown, Verified 10/13/23) Unkown NSAIDS (Non-Steroidal Anti-Inflamma Allergy (Unknown, Verified 10/13/23:) Unknown Peanut Butter Allergy (Unknown, Verified 10/13/23:) increased heart rate Penicillins Allergy (Unknown, Verified 10/13/23) unknown propranolol Allergy (Unknown, Verified 10/13/23) cramps tramadol [Ultram] Allergy (Unknown, Verified 10/13/23:) unknown bempedoic acid Adverse Reaction (Mild, Verified 10/13/23) Cough and excessive sweating ciprofloxacin [Cipro] Adverse Reaction (Unknown, Verified 10/13/23:) jittery ezetimibe [Zetia] Adverse Reaction (Unknown, Verified 10/13/23:) Shortness of breath hydrochlorothiazide Adverse Reaction (Unknown, Verified 10/13/23) Dizziness, issue with blood pressure irbesartan Adverse Reaction (Unknown, Verified 10/13/23:) severe GI upset ketorolac Adverse Reaction (Unknown, Verified 10/13/23) chest px levofloxacin [Levaquin] Adverse Reaction (Unknown, Verified 10/13/23) redness, throat closing losartan Adverse Reaction (Unknown, Verified 10/13/23:) Abdominal pain/bloating celecoxib Adverse Reaction (Verified 10/13/23:) ear pain Most antibiotics Allergy (Unknown, Uncoded 08/31/23 09:40) unknown Mycin drugs Allergy (Unknown, Uncoded 08/31/23 09:40) Unk pain medication Allergy (Unknown, Uncoded 08/31/23 09:40) unknown harriet? Allergy (Unknown, Uncoded 08/31/23 09:40) unk surgical tape Adverse Reaction (Unknown, Uncoded 08/31/23 09:40) rash Medication List - Last Reconciled 10/13/23 by RUIZ Blue albuterol sulfate 90 mcg/actuation 1 inh inhalation QID PRN 90 days aspirin (Enteric Coated Aspirin) 81 mg PO DAILY blood sugar diagnostic As directed dulaglutide 1.5 mg subcut QWEEK epinephrine (EpiPen) 0.3 mg (0.3 mL) IM Q4H PRN lisinopril 10 mg PO DAILY metoprolol succinate ER 12.5 mg (1/2 x 25 mg) PO DAILY 90 days OneTouch Verio test strips (blood sugar diagnostic) Use to check blood sugar once a day or if having symptoms of hypo/hyperglycemia. NS oxycodone-acetaminophen 5-325 mg 1 tab PO Q6H PRN Tobacco use date assessed: 05/03/23 Fall risk assessment: No Falls in past year Last assessed Fall Risk: 10/13/23 Dental Screening Dental Screen Date: 05/03/23 HPI Elevated BP HPI Details Pt is a diabetic, on an ARB. Due for A1C, will order. Due for microalbumin. Denies polyuria, polydipsia, and neuropathy. Pt denies any signs and symptoms of hypoglycemia and does know how to correct it. Pt's blood pressure is elevated today. She is not taking olmesartan. Will start lisinopril 10mg and metoprolol 12.5mg. Will have pt continue to monitor her blood pressure at home. Denies chest pain, shortness of breath, headache, dizziness, and blurred vision. [facility] Medical History Ischemic heart disease Hamartoma Hyperlipidemia Gastroesophageal reflux disease Surgical History History of eyelid surgery History of lung surgery Family History Father No problems noted. Mother Tongue cancer Smoker Heart problem History of heart attack Sister No problems noted. Sister No problems noted. 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 Charles Valencia, Ingrid Vásquez, Ramiro Watts and colleagues, with an educational andie from [employer]. Review of Systems Const Reports as per HPI Physical exam (Primary Care) Vital Signs: Last Vital Signs Pulse 74 10/13/23 11:25 BP 160/100 H 10/13/23 11:25 Pulse Ox 97 10/13/23 11:25 Tobacco/Smoking Status: Tobacco use Status Tobacco use date assessed 05/03/23 10/13/23 11:27 Patient Tobacco Use Status Former Tobacco user 10/13/23 11:27 e-Cigarette/Vaping Use Never Used 10/13/23 11:27 Thrive Assessment: Date of Thrive Assessment Date Thrive assessed 08/31/23 10/13/23 11:27 Const General: cooperative Orientation/consciousness: patient oriented x3 Resp Effort & Inspection: normal respiratory effort Auscultation: clear to auscultation bilaterally Cardio Rate: regular rate Rhythm: regular rhythm Heart sounds: S1 normal heart sound present and S2 normal heart sound present Neuro General: patient oriented x3 Extrem Right lower extremity: no edema Left lower extremity: no edema Psych Appearance: grossly normal Mental Status: mental status grossly normal Speech and movement: Normal speech and movement present Affect: normal affect Attitude: cooperative Thought process: Normal thought process present Thought content: Normal thought content present Insight: Good insight present (Psych) Judgement: Good judgement present (Psych) Assessment and Plan Assessment & Plan (1) Type 2 diabetes mellitus with unspecified complications: Code(s): E11.8 - Type 2 diabetes mellitus with unspecified complications Plan: Labs ordered (2) HTN (hypertension): Code(s): I10 - Essential (primary) hypertension Plan: starting lisinopril and metoprolol, pt will send me BPs from home Plan The patient agreed to the use of a electromedical equipment technician for this encounter. Scribed for SERGE Llamas by Zoe Mack electromedical equipment technician, on 10/13/2023 at 11:55 EST. Orders: Orders Hemoglobin A1c Today E11.8 - Type 2 diabetes mellitus with unspecified complications, I10 - Essential (primary) hypertension Medications: New lisinopril 10 mg PO DAILY 90 tabs 0RF metoprolol succinate ER 12.5 mg (1/2 x 25 mg) PO DAILY 90 days 45 tabs 0RF Discontinued olmesartan Discontinued Reason: Doctor's Order 5 mg PO DAILY 30 tabs 2RF Coding Level of Care Code Est Pt Level 3 (41983) Diagnoses Type 2 diabetes mellitus with unspecified complications E11.8 HTN (hypertension) I10
== END 2023-10-13 14:32 | disposition home or self-care (01) ==
PROVIDERS: PCP Nurse Practitioner Family; Visit Provider Nurse Practitioner Family
DX: E11.8 Type 2 diabetes mellitus with unspecified complications (principal); I10 Essential (primary) hypertension
CPT/HCPCS: 99213

== ENCOUNTER 2023-10-18 09:27 | Outpatient (AMB) | payer MEDICARE, SELFPAY ==
[2023-10-18 09:44] VITALS: BMI 28.2
--- NOTE | 2023-10-18 09:44 | MHC.OFFVIS ---
Vital Signs 08 09:44 Height 5 ft 7 in Weight 180 lb BMI 28.2 Intake Visit Reasons: PO LT MF trigger 10/03/23 AR Intake Note: Leslye is a 68 yo right hand dominant female who presents today post operatively s/p left middle trigger finger release done 10/03/[address] Benavidez. Patient reports minimal soreness but is not taking anything for pain. Denies numbness and tingling. Patient states her left middle finger is locking on for about 1 hour in the morning. Sutures removed in office today and steri strips applied. Allergies rosuvastatin Allergy (Intermediate, Verified 10/18/23 09:54) Unknown amlodipine Allergy (Unknown, Verified 10/18/23 09:54) Unsure amoxicillin Allergy (Unknown, Verified 10/18/23 09:54) unknown erythromycin base Allergy (Unknown, Verified 10/18/23 09:54) Unknown fexofenadine [From Anika] Allergy (Unknown, Verified 10/18/23 09:54) unknown ibuprofen Allergy (Unknown, Verified 10/18/23 09:54) Unkown NSAIDS (Non-Steroidal Anti-Inflamma Allergy (Unknown, Verified 10/18/23 09:54) Unknown Peanut Butter Allergy (Unknown, Verified 10/18/23 09:54) increased heart rate Penicillins Allergy (Unknown, Verified 10/18/23 09:54) unknown propranolol Allergy (Unknown, Verified 10/18/23 09:54) cramps tramadol [Ultram] Allergy (Unknown, Verified 10/18/23 09:54) unknown bempedoic acid Adverse Reaction (Mild, Verified 10/18/23 09:54) Cough and excessive sweating ciprofloxacin [Cipro] Adverse Reaction (Unknown, Verified 10/18/23 09:54) jittery ezetimibe [Zetia] Adverse Reaction (Unknown, Verified 10/18/23 09:54) Shortness of breath hydrochlorothiazide Adverse Reaction (Unknown, Verified 10/18/23 09:54) Dizziness, issue with blood pressure irbesartan Adverse Reaction (Unknown, Verified 10/18/23 09:54) severe GI upset ketorolac Adverse Reaction (Unknown, Verified 10/18/23 09:54) chest px levofloxacin [Levaquin] Adverse Reaction (Unknown, Verified 10/18/23 09:54) redness, throat closing losartan Adverse Reaction (Unknown, Verified 10/18/23 09:54) Abdominal pain/bloating celecoxib Adverse Reaction (Verified 10/18/23 09:54) ear pain Most antibiotics Allergy (Unknown, Uncoded 10/18/23 09:54) unknown Mycin drugs Allergy (Unknown, Uncoded 10/18/23 09:54) Unk pain medication Allergy (Unknown, Uncoded 10/18/23 09:54) unknown harriet? Allergy (Unknown, Uncoded 10/18/23 09:54) unk surgical tape Adverse Reaction (Unknown, Uncoded 10/18/23 09:54) rash HPI HPI PO LT MF trigger 10/03/23 AR: Details: Leslye is a 68 year old right hand dominant Diabetic woman who returns S/P left middle finger trigger release, DOS: 10/03/23. She says she is doing well. [facility] Medical History Ischemic heart disease Hamartoma Hyperlipidemia Gastroesophageal reflux disease Surgical History History of eyelid surgery History of lung surgery Family History Father No problems noted. Mother Tongue cancer Smoker Heart problem History of heart attack Sister No problems noted. Sister No problems noted. 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 Sutures removed and Steri-Strips applied She can make a fist and extend all her digits No locking or catching Mild swelling about the incision, within normal limits Sensation is intact Cap refill is brisk Psych Appearance: grossly normal Affect: normal affect Attitude: cooperative Assessment & Plan Assessment & Plan (1) Trigger finger, left middle finger: Code(s): M65.332 - Trigger finger, left middle finger Category: Medical (2) Type 2 diabetes mellitus with unspecified complications: Code(s): E11.8 - Type 2 diabetes mellitus with unspecified complications Category: Medical Plan Assessment & Plan: 1. Left middle finger trigger finger, S/P release DOS: 10/03/23 The patient appears to be doing well post-operatively I educated her about the post-operative course I discussed activity modifications, she is to lift nothing heavier than a cellphone for the next two weeks She will perform gentle ROM exercises at home She should avoid any underwater activities for the next 5 days She should gently massage about the incision site to reduce the risk of hypersensitivity She can follow up prn Scribed for Carine Benavidez MD by yolanda Stanton, on 10/18/23 at 10:15 AM, EST. Scribe Plan - Not visible on output: Scribed for Carine Benavidez MD by yolanda Stanton scribe, on [ ] at [ ], EST. Coding Level of Care Code Global (86599) Diagnoses Trigger finger, left middle finger M65.332 Type 2 diabetes mellitus with unspecified complications E11.8
== END 2023-10-18 10:21 | disposition home or self-care (01) ==
PROVIDERS: PCP Nurse Practitioner Family; Visit Provider Orthopaedic Surgery
DX: M65.332 Trigger finger, left middle finger (principal); E11.8 Type 2 diabetes mellitus with unspecified complications
CPT/HCPCS: 99024

== ENCOUNTER → 2023-10-18 09:27 | Outpatient (BNVA) | payer MEDICARE, SELFPAY | PROVIDERS: PCP Nurse Practitioner Family; Visit Provider Orthopaedic Surgery | DX: M65.332 Trigger finger, left middle finger (principal); E11.9 Type 2 diabetes mellitus without complications; Z48.02 Encounter for removal of sutures | CPT/HCPCS: 99212 ==

== ENCOUNTER 2023-10-25 08:48 | Outpatient (AMB) | payer MEDICARE, SELFPAY ==
--- NOTE | 2023-10-25 08:47 | AM.OFFWIN_ITS ---
Intake Vital Signs 10/25/23 08:52 BMI Reason not done Patient refused/unable BP 134/86 Blood Pressure Location Lt brachial Position Sitting Pulse 69 Pulse Source Pulse Oximeter Pulse Oximetry (%) 98 Oxygen Delivery Method Room Air Intake Visit Reasons: EP Pulled lower back/hip Intake Note: Patient here for lower back and right hip, she said it started tuesday night when she got out of her living room chair. Patient Tobacco Use Status: Former Tobacco user Allergies rosuvastatin Allergy (Intermediate, Verified 10/25/23 08:51) Unknown amlodipine Allergy (Unknown, Verified 10/25/23 08:51) Unsure amoxicillin Allergy (Unknown, Verified 10/25/23 08:51) unknown erythromycin base Allergy (Unknown, Verified 10/25/23 08:51) Unknown fexofenadine [From Anika] Allergy (Unknown, Verified 10/25/23 08:51) unknown ibuprofen Allergy (Unknown, Verified 10/25/23 08:51) Unkown NSAIDS (Non-Steroidal Anti-Inflamma Allergy (Unknown, Verified 10/25/23 08:51) Unknown Peanut Butter Allergy (Unknown, Verified 10/25/23 08:51) increased heart rate Penicillins Allergy (Unknown, Verified 10/25/23 08:51) unknown propranolol Allergy (Unknown, Verified 10/25/23 08:51) cramps tramadol [Ultram] Allergy (Unknown, Verified 10/25/23 08:51) unknown bempedoic acid Adverse Reaction (Mild, Verified 10/25/23 08:51) Cough and excessive sweating ciprofloxacin [Cipro] Adverse Reaction (Unknown, Verified 10/25/23 08:51) jittery ezetimibe [Zetia] Adverse Reaction (Unknown, Verified 10/25/23 08:51) Shortness of breath hydrochlorothiazide Adverse Reaction (Unknown, Verified 10/25/23 08:51) Dizziness, issue with blood pressure irbesartan Adverse Reaction (Unknown, Verified 10/25/23 08:51) severe GI upset ketorolac Adverse Reaction (Unknown, Verified 10/25/23 08:51) chest px levofloxacin [Levaquin] Adverse Reaction (Unknown, Verified 10/25/23 08:51) redness, throat closing losartan Adverse Reaction (Unknown, Verified 10/25/23 08:51) Abdominal pain/bloating celecoxib Adverse Reaction (Verified 10/25/23 08:51) ear pain Most antibiotics Allergy (Unknown, Uncoded 10/25/23 08:51) unknown Mycin drugs Allergy (Unknown, Uncoded 10/25/23 08:51) Unk pain medication Allergy (Unknown, Uncoded 10/25/23 08:51) unknown harriet? Allergy (Unknown, Uncoded 10/25/23 08:51) unk surgical tape Adverse Reaction (Unknown, Uncoded 10/25/23 08:51) rash Do you need a note to return to daycare/school/sports/work: No HPI HPI Comments History of Present Illness Details Patient is a 68-year-old female complaining of low back pain since Tuesday night when getting out of her living room chair. She states the pain was worse on Tuesday and she was unable to move initially but is now able to walk and drive and get around although with a lot of pain with movement. She states sitting still makes it feel better. She denies any loss of control of bladder or bowels or saddle paresthesias. She states she has multiple allergies and NSAIDs and Tylenol do not work for her, she states they actually give her more pain. She states the only thing that she has used that seemed to help a little bit of ice on Tuesday and when she pushes on the area, it actually feels better. She states heat did not help, she states muscle relaxers do not work for her. She just had surgery on her left hand and had a couple of oxycodone left over so she has been taking those daily since Tuesday. She states she does have some prednisone at home that her PCP prescribed for her previously but they make her blood sugar go up dramatically. [facility] Medical History Ischemic heart disease Hamartoma Hyperlipidemia Gastroesophageal reflux disease Surgical History History of eyelid surgery History of lung surgery Family History Father No problems noted. Mother Tongue cancer Smoker Heart problem History of heart attack Sister No problems noted. Sister No problems noted. 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 Cognitive needs: No Hearing needs: No Vision needs: Yes Review of Systems Const All systems reviewed & are unremarkable except as noted in HPI and below Physical Exam Vital Signs: Last Vital Signs Pulse 69 10/25/23 08:52 BP 134/86 10/25/23 08:52 Pulse Ox 98 10/25/23 08:52 Oxygen Delivery Method Room Air 10/25/23 08:52 Const General: cooperative, healthy appearing and other (In mild discomfort) Orientation/consciousness: patient oriented x3 HEENT Head: Yes normal to inspection and Yes normocephalic General nose exam: Normal external nose present Face and sinus: Yes normal facial exam Eyes General: appearance normal, both eyes and all related structures Resp Effort & Inspection: normal respiratory effort and able to speak in complete sentences General: Yes no CVA tenderness Back/Spine/Pelvis Back: no CVA tenderness Cervical Spine: cervical ROM normal and No Cervical spine tenderness Thoracic/Lumbar Spine: thoracic and lumbar spine normal to inspection, pain with thoraco-lumbar ROM, paraspinal muscle tenderness on the right, thoraco-lumbar ROM limited (Secondary to pain) with forward flexion, with lateral flexion to the right, with lateral flexion to the left, with rotation to the right and with rotation to the left, No thoracic spinal tenderness and No lumbar spinal tenderness Neuro General: patient oriented x3 Extrem Other: Straight leg raise test negative on right; Straight leg raise test negative on left; Reflexes normal ankle and knee bilaterally; motor strength normal bilaterally Assessment & Plan Assessment & Plan (1) Acute right-sided low back pain without sciatica: Code(s): M54.50 - Low back pain, unspecified Plan: Due to the patient's statements that NSAIDs do not work for her, muscle relaxers do not work for her, heat makes it worse, she has no access to picker and packer any pain or lidocaine patches and Voltaren gel does not work for her, we are severely limited in our options. I do think because pushing on the area actually makes it better that this is most likely a muscle spasm so I encouraged her to try the muscle relaxers with some ice and rest. I will send a note to her PCP if he is comfortable sending any other medications but she has an allergy to tramadol. Plan See above Medications: New cyclobenzaprine Take 1-2 tablets every 8 hours as needed for muscle spasm 5 mg PO Q8H PRN 14 tabs 0RF muscle spasm Coding Level of Care Code Est Pt Level 3 (70697) Diagnoses Acute right-sided low back pain without sciatica M54.50
[2023-10-25 08:52] VITALS: BP 134/86; PULSE 69; O2SAT 98
== END 2023-10-25 09:23 | disposition home or self-care (01) ==
PROVIDERS: PCP Nurse Practitioner Family; Visit Provider Physician Assistant
DX: M54.50 Low back pain, unspecified (principal)
CPT/HCPCS: 99213

== ENCOUNTER 2023-12-14 07:35 | Outpatient (REF) | payer MEDICARE, SELFPAY ==
[2023-12-14 10:14] LABS: MANUAL DIFF FLAG NO
[2023-12-14 10:23] LABS: Basophils Percent Auto 0.5 % (0-2); Eosinophils Absolute Auto 0.2 X10*3/uL (0.0-0.4); Eosinophils Percent Auto 3.6 % (0-4); Hematocrit 41.3 % (37.0-47.0); Hemoglobin 13.9 g/dl (12.0-16.0); Imm Gran Abs Auto 0.01 X10*3/uL (0.00-0.03); Imm Gran Pct Auto 0.2 % (0.0-0.4); Lymphocytes Absolute Auto 1.8 X10*3/uL (1.2-4.9); Mean Corpuscular HGB Conc 33.7 g/dl (31.0-35.0); Mean Corpuscular Hemoglobin 29.2 pg (27.0-33.0); Mean Corpuscular Volume 86.8 fL (80.0-98.0); Mean Platelet Volume 9.8 fL (9.4-12.3); Monocytes Absolute Auto 0.4 X10*3/uL (0.1-1.2); Monocytes Percent Auto 5.3 % (2-11); Neutrophils Absolute Auto 4.2 x10*3/uL (2.0-8.3); Neutrophils Percent Auto 63.4 % (45-73); Platelet Count 277 X10*3/uL (160-400); Red Blood Count 4.76 X10*6/uL (4.20-5.50); Red Cell Distribution Width 12.6 % (11.0-16.0); White Blood Count 6.7 X10*3/uL (4.8-10.8)
[2023-12-14 10:33] LABS: Estimated Average Glucose 134 mg/dL; Hemoglobin A1C 154.1142 umol/L; Hemoglobin A1c % 6.3 % (<6.0)
[2023-12-14 10:43] LABS: Appearance Urine Clear; Color Urine Yellow; Glucose Urine UA Negative (Negative); Leukocyte Esterase Urine Negative (Negative); Nitrite Urine Negative (Negative); PH 5.5 (5.0-9.0); Specific Gravity - Urine >= 1.030 (1.005-1.025); Urine Blood Negative (Negative); Urine Ketones Negative (Negative); Urine Protein Negative (Neg-Trace)
[2023-12-14 11:01] LABS: Alanine Aminotransferase 13 U/L (0-31); Albumin Level 3.8 g/dL (3.5-5.0); Alkaline Phosphatase 57 U/L (39-117); Anion Gap 10 (12-20); Aspartate Amino Transferase 14 U/L (5-31); Bilirubin Total 0.6 mg/dL (0.0-1.0); Blood Urea Nitrogen 20 mg/dL (9-16); Calcium 9.2 mg/dL (8.4-10.2); Carbon Dioxide 28 mmol/L (22-29); Chloride 108 mmol/L (96-108); Cholesterol 183 mg/dL (<200); Estimated Glomerular Filt Rate > 60; Glucose Fasting 151 mg/dL (60-99); HDL Cholesterol 45 mg/dL (>40); LDL Cholesterol Calculated 116 mg/dL (<100); Sodium 142 mmol/L (135-145); Triglycerides 114 mg/dL (<150)
[2023-12-14 11:22] LABS: TSH reflex Free T4 1.87 uIU/mL (0.32-4.0)
[2023-12-14 11:31] LABS: Creatinine Urine 335.15 mg/dL; Microalbum/Creatinine Ratio Ur 5.3 ug/mg cr (<30)
== END 2023-12-14 07:36 | disposition home or self-care (01) ==
LOC: HO.HMGCLDS 07:35
PROVIDERS: PCP Nurse Practitioner Family; Visit Provider Nurse Practitioner Family
DX: E11.8 Type 2 diabetes mellitus with unspecified complications (principal); I10 Essential (primary) hypertension
CPT/HCPCS: 36415; 80053; 80061; 81003; 82043; 82570; 83036; 84443; 85025

== ENCOUNTER 2024-01-11 08:49 | Outpatient (AMB) | payer MEDICARE, SELFPAY ==
[2024-01-11 08:51] VITALS: BP 130/76; PULSE 73; O2SAT 98
--- NOTE | 2024-01-11 08:51 | AM.OFFVISMDC ---
Intake Vital Signs 01/11/24 08:51 Height 5 ft 7 in BMI Reason not done Patient refused/unable BP 130/76 Blood Pressure Location Rt brachial Position Sitting Pulse 73 Pulse Source Pulse Oximeter Pulse Oximetry (%) 98 Oxygen Delivery Method Room Air Intake Visit Reasons: AWV G0438 - see comments Intake Note: pt is here for MWV [employer] Installer Required: No Accompanied by: Self / Same As Patient Allergies rosuvastatin Allergy (Intermediate, Verified 01/11/24 09:14) Unknown amlodipine Allergy (Unknown, Verified 01/11/24 09:14) Unsure amoxicillin Allergy (Unknown, Verified 01/11/24 09:14) unknown erythromycin base Allergy (Unknown, Verified 01/11/24 09:14) Unknown fexofenadine [From Anika] Allergy (Unknown, Verified 01/11/24 09:14) unknown ibuprofen Allergy (Unknown, Verified 01/11/24 09:14) Unkown NSAIDS (Non-Steroidal Anti-Inflamma Allergy (Unknown, Verified 01/11/24 09:14) Unknown Peanut Butter Allergy (Unknown, Verified 01/11/24 09:14) increased heart rate Penicillins Allergy (Unknown, Verified 01/11/24 09:14) unknown propranolol Allergy (Unknown, Verified 01/11/24 09:14) cramps tramadol [Ultram] Allergy (Unknown, Verified 01/11/24 09:14) unknown bempedoic acid Adverse Reaction (Mild, Verified 01/11/24 09:14) Cough and excessive sweating ciprofloxacin [Cipro] Adverse Reaction (Unknown, Verified 01/11/24 09:14) jittery ezetimibe [Zetia] Adverse Reaction (Unknown, Verified 01/11/24 09:14) Shortness of breath hydrochlorothiazide Adverse Reaction (Unknown, Verified 01/11/24 09:14) Dizziness, issue with blood pressure irbesartan Adverse Reaction (Unknown, Verified 01/11/24 09:14) severe GI upset ketorolac Adverse Reaction (Unknown, Verified 01/11/24 09:14) chest px levofloxacin [Levaquin] Adverse Reaction (Unknown, Verified 01/11/24 09:14) redness, throat closing losartan Adverse Reaction (Unknown, Verified 01/11/24 09:14) Abdominal pain/bloating celecoxib Adverse Reaction (Verified 01/11/24 09:14) ear pain Most antibiotics Allergy (Unknown, Uncoded 01/11/24 09:14) unknown Mycin drugs Allergy (Unknown, Uncoded 01/11/24 09:14) Unk pain medication Allergy (Unknown, Uncoded 01/11/24 09:14) unknown harriet? Allergy (Unknown, Uncoded 01/11/24 09:14) unk surgical tape Adverse Reaction (Unknown, Uncoded 01/11/24 09:14) rash Medication List - Last Reconciled 01/11/24 by NESTOR Blue-NNEKA albuterol sulfate 90 mcg/actuation 1 inh inhalation QID PRN 90 days aspirin (Enteric Coated Aspirin) 81 mg PO DAILY blood sugar diagnostic As directed dulaglutide 1.5 mg subcut QWEEK epinephrine (EpiPen) 0.3 mg (0.3 mL) IM Q4H PRN hydrocodone-acetaminophen 5-325 mg 1 tab PO BID PRN 5 days lisinopril 10 mg PO DAILY metoprolol succinate ER 12.5 mg (1/2 x 25 mg) PO DAILY 90 days OneTouch Verio test strips (blood sugar diagnostic) Use to check blood sugar once a day or if having symptoms of hypo/hyperglycemia. NS Do you need a note to return to daycare/school/sports/work: No HPI AWV G0438 - see comments HPI Details Pt is here for an AWV. Denies fever, chills, and dizziness. [place] of care refused. PPP will be scanned in chart and copy will be given to pt. Pt refused a lot of the AWV paperwork. Refuses all vaccinations. HPI Comments History of Present Illness Details COPD: refuses use of inhalers, denies any recent SOB. Pt was seeing pulmonary, no longer does. Pt smoked for a very short time but no longer does, quit at age 31. Pt is exposed to a lot of secondhand smoke. [facility] Medical History Ischemic heart disease Hamartoma Hyperlipidemia Gastroesophageal reflux disease Surgical History History of eyelid surgery History of lung surgery Family History Father No problems noted. Mother Tongue cancer Smoker Heart problem History of heart attack Sister No problems noted. Sister No problems noted. 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 Cognitive needs: No Hearing needs: No Vision needs: Yes Questionnaire Medicare Wellness Checkup What [age] 65-70 What gender do you identify with?: female During the past 4 weeks, how much have you been bothered by emotional problems such as feeling anxious, depressed, irritable, sad or downhearted, and blue?: slightly During the past 4 weeks, has your physical & emotional health limited your social activities with family, friends, neighbors, or groups?: slightly During the past 4 weeks, how much bodily pain have you generally had?: moderate pain During the past 4 weeks, was someone available to help you if you needed & wanted help?: no, not at all During the past 4 weeks, what was the hardest physical activity you could do for at least 2 minutes?: very heavy Can you get to places out of walking distance without help? (For eg., can you travel alone on buses, taxis or drive your car?): Yes Can you go shopping for groceries or clothes without someone's help?: Yes Can you prepare your own meals?: Yes Can you do your housework without help?: Yes Because of any health problems, do you need the help of another person with your personal care needs such as eating, bathing, dressing or getting around the house?: No Can you handle your own money without help?: Yes During the past 4 weeks, how would you rate your health in general?: good During the past 4 weeks how have things been going for you?: good & bad parts about equal Are you having difficulties driving your car?: no Do you always fasten your seat belt when you are in a car?: yes, usually During past 4 weeks, have you been bothered by the following: never: Falling or dizzy when standing up, Sexual problems?, Trouble eating well?, Teeth or denture problems?, Problems using the telephone? and Tiredness or fatigue? Have you fallen 2 or more times in the past year?: No Are you afraid of falling?: No Are you a smoker?: no During the past 4 weeks, how many drinks of wine, beer, or other alcoholic beverages did you have?: 10 or more per week Do you exercise for about 20 minutes 3 or more times a week?: no, I usually do not exercise this much Have you been given information to help with the following?: yes: Keeping track of your medications? and no: Hazards in your house that might hurt you? How often do you have trouble taking medicines the way you have been told to take them?: I always take medicine as prescribed How confident are you that you can control & manage most of your health problems?: very confident What is your race?: White Mini Mental State Exam (MMSE) Orientation What is the (year) (season) (date) (day) (month)?: year, season, date, day and month Where are we (state) (county) (town or city) (hospital) (floor)?: state, county, town or city, hospital/clinic and floor Registration Name of 3 unrelated objects clearly and slowly, then ask patient to repeat all 3 of them. (1st repeat determines score. Make sure they can repeat all three): object 1, object 2 and object 3 Attention & Calculation (CHOOSE ONE) Spell WORLD backwards (DLROW): 5 letters Recall Ask patient to repeat the 3 items from question #3.: object 1, object 2 and object 3 Language Show patient a wristwatch & ask what it is. Repeat for pencil.: watch and pencil Ask the patient to repeat the phrase 'No ifs, ands, or buts' after you.: correct Ask the patient to 'take a piece of paper with their right hand' 'fold paper in half' 'place paper on floor': take paper in right hand, fold paper in half and place paper on floor Print the sentence 'CLOSE YOUR EYES' on a piece. If patient actually closes eyes then score.: followed written direction Give patient a blank piece of paper & ask to write a sentence. Score if it contains a noun & verb.: sentence contains subject and verb Ask patient to copy figure of intersecting pentagons exactly. Score if all 10 angles & 2 intersects are included.: all 10 angles present & 2 are intersected Score Score: 30 Activity of Daily Living Bathing - sponge bath, tub bath or shower: receives no assistance (gets in/out by self, if usual bathing means Dressing - getting clothes from closets & drawers, including inner/outer garments & fasteners.: gets clothes & gets completely dressed without help Toileting - going to the 'toilet room' for urine/bowel elimination & cleaning self/arranging clothes: goes to toilet room, cleans self, arranges clothes without help Transfer: moves in & out of bed and chair without help (may use support object) Continence: controls urination/bowel movements completely by self Feeding: feeds self without help Total Score: 0 Information obtained from: patient Using telephone: independent Traveling: independent Shopping: independent Preparing meals: independent Housework: independent Taking medicine: independent Managing money: independent PHQ-9 Over the last 2 weeks, how often have you been bothered by any of the following problems? [id number] - PHQ-9 Billing: Patient declined-do not bill Source: Developed by Drs. Charles Valencia, Ingrid Vásquez, Ramiro Watts and colleagues, with an educational andie from [employer]. Review of Systems Const Denies chills and Denies fever(s) Eyes Denies blurry vision ENT Denies vertigo, Denies dizziness and Denies sore throat Card Denies chest pain at rest, Denies chest pain with activity, Denies diaphoresis, Denies dyspnea and Denies dyspnea on exertion Resp Denies cough, Denies dyspnea, Denies dyspnea on exertion and Denies wheezing GI Denies abdominal pain, Denies melena, Denies hematochezia, Denies constipation, Denies diarrhea and Denies loose stools Denies hematuria Musc Denies numbness and Denies tingling Skin/Breast Denies lesions Neuro Denies vertigo, Denies dizziness, Denies numbness and Denies tingling Psych Denies anxiety, Denies depression, Denies homicidal ideation, Denies suicidal ideation and Denies other (substance abuse) Aller/Immun Denies wheezing Physical Exam Vital Signs: Last Vital Signs Pulse 73 01/11/24 08:51 BP 130/76 01/11/24 08:51 Pulse Ox 98 01/11/24 08:51 Oxygen Delivery Method Room Air 01/11/24 08:51 Const General: cooperative Nutritional Appearance: well nourished Orientation/consciousness: patient oriented x3 HEENT Head: Yes normal to inspection, Yes normocephalic and Yes atraumatic Ears: TM's normal bilaterally Eyes General: appearance normal, both eyes and all related structures Alignment and Position: alignment normal and position normal Neck Neck: Yes normal visual inspection, Yes no lymphadenopathy and Yes supple Resp Effort & Inspection: normal respiratory effort Auscultation: clear to auscultation bilaterally Cardio Rate: regular rate Rhythm: regular rhythm Heart sounds: S1 normal heart sound present, S2 normal heart sound present and no murmurs GI Palpation (GI): Soft to palpation and nontender Auscultation: normal bowel sounds Skin Rashes: no rashes Neuro General: patient oriented x3, moves all extremities, no focal motor deficits and deep tendon reflexes 2+ bilaterally Romberg Test: Negative Psych Appearance: grossly normal Mental Status: mental status grossly normal Speech and movement: Normal speech and movement present Affect: normal affect Attitude: cooperative Thought process: Normal thought process present Thought content: Normal thought content present Insight: Good insight present (Psych) Judgement: Good judgement present (Psych) Assessment & Plan Assessment & Plan (1) Postmenopausal: Code(s): Z78.0 - Asymptomatic menopausal state Plan: bone density ordered (2) Encounter for annual wellness visit (AWV) in Medicare patient: Code(s): Z00.00 - Encounter for general adult medical examination without abnormal findings Plan: done (3) COPD (chronic obstructive pulmonary disease): Code(s): J44.9 - Chronic obstructive pulmonary disease, unspecified Plan: no longer seeing pulmonary and refuses inhalers Plan The patient agreed to the use of a medical accounts receivable specialist for this encounter. Scribed for RUIZ Llamas by Zoe Mack medical accounts receivable specialist, on 01/11/2024 at 09:00 EST. Orders: Orders XR DEXA axial skeleton Today Z78.0 - Asymptomatic menopausal state Vitamin D 25-OH Total Today Z78.0 - Asymptomatic menopausal state Referrals Cologuard Test Z12.11 - Encounter for screening for malignant neoplasm of colon, Z12.12 - Encounter for screening for malignant neoplasm of rectum Medications: New semaglutide (Ozempic) for 4 weeks 0.25 mg (0.368 mL) subcut QWEEK 3 mL 0RF Coding Level of Care Code Medicare First (G0438) Est Pt Level 3 (23498) Diagnoses Postmenopausal Z78.0 Encounter for annual wellness visit (AWV) in Medicare patient Z00.00 COPD (chronic obstructive pulmonary disease) J44.9 CPT Codes Advance Care Planning - Time spent: 1-15 minutes, on File ([id number]) Advance Care Planning Forms completed: Health Care Proxy (form given to pt), MOLST (form explained to pt, given to pt) and Living will (recommended this gets done) Time spent: 1-15 minutes, on File Actual minutes spent: 15
== END 2024-01-11 09:54 | disposition home or self-care (01) ==
PROVIDERS: PCP Nurse Practitioner Family; Visit Provider Nurse Practitioner Family
DX: Z00.00 Encounter for general adult medical examination without abnormal findings (principal); J44.9 Chronic obstructive pulmonary disease, unspecified; Z78.0 Asymptomatic menopausal state

== ENCOUNTER → 2024-01-11 08:49 | Outpatient (BNVA) | payer MEDICARE, SELFPAY | PROVIDERS: PCP Nurse Practitioner Family; Visit Provider Nurse Practitioner Family | DX: Z00.00 Encounter for general adult medical examination without abnormal findings (principal); J44.9 Chronic obstructive pulmonary disease, unspecified; Z78.0 Asymptomatic menopausal state | CPT/HCPCS: 99212 ==

== ENCOUNTER 2024-01-18 10:34 | Outpatient (AMB) | payer MEDICARE, SELFPAY ==
[2024-01-18 11:08] VITALS: BMI 28.2
--- NOTE | 2024-01-18 11:08 | A.OFFVIS_ITS ---
Vital Signs 01/18/24 11:08 Height 5 ft 7 in Weight 180 lb BMI 28.2 Intake Visit Reasons: New Prob Lt hand pain/bump Intake Note: Leslye is a 68 yo right hand dominant female who presents today complaining of left hand pain and a bump on the volar aspect of the left hand, S/P left middle finger trigger 10/03/23. Patient reports sporadic left middle finger and volar swelling and pain. She shares the bump fluctuates in size making it difficult to do activities like playing pool. She is able to make a full fist. Allergies rosuvastatin Allergy (Intermediate, Verified 01/18/24 11:09) Unknown amlodipine Allergy (Unknown, Verified 01/18/24 11:09) Unsure amoxicillin Allergy (Unknown, Verified 01/18/24 11:09) unknown erythromycin base Allergy (Unknown, Verified 01/18/24 11:09) Unknown fexofenadine [From Anika] Allergy (Unknown, Verified 01/18/24 11:09) unknown ibuprofen Allergy (Unknown, Verified 01/18/24 11:09) Unkown NSAIDS (Non-Steroidal Anti-Inflamma Allergy (Unknown, Verified 01/18/24 11:09) Unknown Peanut Butter Allergy (Unknown, Verified 01/18/24 11:09) increased heart rate Penicillins Allergy (Unknown, Verified 01/18/24 11:09) unknown propranolol Allergy (Unknown, Verified 01/18/24 11:09) cramps tramadol [Ultram] Allergy (Unknown, Verified 01/18/24 11:09) unknown bempedoic acid Adverse Reaction (Mild, Verified 01/18/24 11:09) Cough and excessive sweating ciprofloxacin [Cipro] Adverse Reaction (Unknown, Verified 01/18/24 11:09) jittery ezetimibe [Zetia] Adverse Reaction (Unknown, Verified 01/18/24 11:09) Shortness of breath hydrochlorothiazide Adverse Reaction (Unknown, Verified 01/18/24 11:09) Dizziness, issue with blood pressure irbesartan Adverse Reaction (Unknown, Verified 01/18/24 11:09) severe GI upset ketorolac Adverse Reaction (Unknown, Verified 01/18/24 11:09) chest px levofloxacin [Levaquin] Adverse Reaction (Unknown, Verified 01/18/24 11:09) redness, throat closing losartan Adverse Reaction (Unknown, Verified 01/18/24 11:09) Abdominal pain/bloating celecoxib Adverse Reaction (Verified 01/18/24 11:09) ear pain Most antibiotics Allergy (Unknown, Uncoded 01/18/24 11:09) unknown Mycin drugs Allergy (Unknown, Uncoded 01/18/24 11:09) Unk pain medication Allergy (Unknown, Uncoded 01/18/24 11:09) unknown harriet? Allergy (Unknown, Uncoded 01/18/24 11:09) unk surgical tape Adverse Reaction (Unknown, Uncoded 01/18/24 11:09) rash HPI HPI New Prob Lt hand pain/bump: Details: Leslye is a 68 year old right hand dominant Diabetic woman who returns with a new complaint of a left hand painful mass. She is S/P left middle finger trigger release, DOS: 10/03/23. She complains of a painful mass on the volar aspect of her left middle finger. She also complains of intermittent pain & swelling in her left middle finger. She says this mass changes in size and effects the use of her hand, such as when playing pool. She also complains of generalized swelling of her hand. [facility] Medical History Ischemic heart disease Hamartoma Hyperlipidemia Gastroesophageal reflux disease Surgical History History of eyelid surgery History of lung surgery Family History Father No problems noted. Mother Tongue cancer Smoker Heart problem History of heart attack Sister No problems noted. Sister No problems noted. 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 Vascular: Cap refill brisk ROM: She can make a fist and extend all her digits No locking or catching No swelling in any of the fingers today. Early Dupuytrens nodule in the mid-palmar crease, in line with the middle finger & just proximal to the surgical site Measuring ~5-6mm in diameter, no evidence of cord or contracture Mild hypersensitivity & no swelling to the middle finger Psych Appearance: grossly normal Affect: normal affect Attitude: cooperative Assessment & Plan Assessment & Plan (1) Type 2 diabetes mellitus with unspecified complications: Code(s): E11.8 - Type 2 diabetes mellitus with unspecified complications Category: Medical (2) Hyperesthesia of scar of finger: Code(s): R20.3 - Hyperesthesia; L90.5 - Scar conditions and fibrosis of skin Category: Medical (3) Mass of finger of left hand: Code(s): R22.32 - Localized swelling, mass and lump, left upper limb Category: Medical Plan Assessment & Plan: 1. Left middle finger hypersensitivity I educated her about this condition It is really quite mild, about the incision site. Also the swelling in the middle finger that she reported was not present today. I recommend she massage about her finger to work on desensitization If she continues to have difficulty she may contact the clinic for a referral to OT hand therapy She can follow up prn 2. Left hand Dupuytren's nodule In line with the middle finger, measuring ~5-6mm in diameter This is a new finding No evidence of cord or contracture at this time I educated her about this condition No intervention warranted 3. Left middle finger trigger finger, S/P release DOS: 10/03/23 Resolved Scribed for Carine Benavidez MD by Roman Brenner, medical staff specialist, on at 11:25 AM, EST. Scribe Plan - Not visible on output: Scribed for Carine Benavidez MD by Roman Brenner medical staff specialist, on [ ] at [ ], EST. Coding Level of Care Code Est Pt Level 3 (04742) Diagnoses Type 2 diabetes mellitus with unspecified complications E11.8 Hyperesthesia of scar of finger R20.3; L90.5 Mass of finger of left hand R22.32
== END 2024-01-18 11:34 | disposition home or self-care (01) ==
PROVIDERS: PCP Nurse Practitioner Family; Visit Provider Orthopaedic Surgery
DX: E11.8 Type 2 diabetes mellitus with unspecified complications (principal); R20.3 Hyperesthesia; L90.5 Scar conditions and fibrosis of skin; R22.32 Localized swelling, mass and lump, left upper limb
CPT/HCPCS: 99213

== ENCOUNTER → 2024-01-18 10:34 | Outpatient (BNVA) | payer MEDICARE, SELFPAY | PROVIDERS: PCP Nurse Practitioner Family; Visit Provider Orthopaedic Surgery | DX: R22.32 Localized swelling, mass and lump, left upper limb (principal); R20.3 Hyperesthesia; L90.5 Scar conditions and fibrosis of skin | CPT/HCPCS: 99212 ==

== ENCOUNTER 2024-02-15 08:06 | Outpatient (REF) | payer MEDICARE, SELFPAY ==
--- NOTE | ~2024-02-15 | MM_ITS ---
EXAMINATION: BONE DENSITOMETRY CLINICAL INDICATION: Menopause. COMPARISON: This is the patient's baseline examination. TECHNIQUE: Using a [employer] DXA System (software version: 13.1) manufactured by [employer], dual-energy x-ray absorptiometry was performed of the lumbar spine and left hip. The images are of good technical quality. Summary results are attached. FINDINGS: LEFT FEMUR, NECK: BMD 0.990 g/cm2, Z-score 0.8, T-score -0.3, normal. LEFT FEMUR, TOTAL: BMD 1.179 g/cm2, Z-score 2.2, T-score 1.4, normal. AP SPINE L1-L4: BMD 1.534 g/cm2, Z-score 3.9, T-score 3.0, normal. IDENTIFIED RISK FACTORS: Menopause. HISTORY OF FRACTURE: None listed. MEDICATIONS: None listed. MM/XR DEXA axial skeleton IMPRESSION: 1. DIAGNOSIS: Normal bone density based on the lowest T-score value of -0.3 in the femoral neck applying World Health Organization criteria. 2. 10-YEAR FRACTURE RISK PREDICTION, FRAX: According to the guidelines, FRAX calculation should only be performed on patients in the osteopenia bone density category. Therefore, FRAX was not performed on this patient. 3. Treatment Recommendations: NOF guidelines recommend consideration for treatment in postmenopausal women and men age 50 and older presenting with the following: -A hip or vertebral (clinical or morphometric) fracture. -T-score less than or equal to -2.5 at the femoral neck or spine after appropriate evaluation to exclude secondary causes. -Low bone mass at the hip or spine and a 10-year fracture probability by FRAX of greater than or equal to 3% for hip fracture or greater than or equal to 20% for major osteoporotic fracture based on the [place] adapted WHO algorithm. 4. Other Recommendations: All treatment decisions require clinical judgment and consideration of individual patient factors, including patient preferences, comorbidities, previous drug use, risk factors not captured in the FRAX model (e.g. frailty, falls, vitamin D deficiency, increased bone turnover, interval significant decline in bone density) and possible under or overestimation of fracture risk by FRAX. FUTURE SCAN RECOMMENDATION: People with diagnosed cases of osteoporosis or at high risk for fracture should have regular bone mineral density tests. For patients eligible for Medicare, routine testing is allowed once every 2 years. The testing frequency can be increased to one year for patients who have rapidly progressing disease, those who are receiving or discontinuing medical therapy to restore bone mass, or have additional risk factors. Electronically signed by: Ruddy Bourgeois MD 02/15/2024 08:58 AM LUICA VALLADARES
== END 2024-02-15 08:07 | disposition home or self-care (01) ==
LOC: HO.MAMMO 08:06
PROVIDERS: PCP Nurse Practitioner Family; Visit Provider Nurse Practitioner Family
DX: Z78.0 Asymptomatic menopausal state (principal)
CPT/HCPCS: 77080

== ENCOUNTER 2024-02-20 07:24 | Outpatient (REF) | payer MEDICARE, SELFPAY | END 2024-02-20 07:25 | disposition home or self-care (01) | LOC: HO.MAMMO 07:24 | PROVIDERS: PCP Nurse Practitioner Family; Visit Provider Nurse Practitioner Family | DX: Z12.31 Encounter for screening mammogram for malignant neoplasm of breast (principal) | CPT/HCPCS: 77063; 77067 ==

== ENCOUNTER → 2024-02-20 07:30 | Outpatient (BNV) | payer MEDICARE, SELFPAY | PROVIDERS: PCP Nurse Practitioner Family; Visit Provider Internal Medicine | DX: Z12.31 Encounter for screening mammogram for malignant neoplasm of breast (principal) | CPT/HCPCS: 77063; 77067 ==